=== PATIENT | male | born 1975 | race Caucasian/White ===

== ENCOUNTER 2020-08-08 07:34 | Outpatient (CLI) | payer OTHER, SELFPAY ==
[2020-08-08 08:21] LABS: Anion Gap 4 mmol/L (8-16); Blood Urea Nitrogen 21 mg/dL (9-20); Calcium 9.3 mg/dL (8.4-10.2); Carbon Dioxide 32 mmol/L (22-30); Chloride 105 mmol/L (98-107); Cholesterol 129 mg/dL (0-200); Estimated Glomerular Filt Rate > 60; Glucose 122 mg/dL (75-110); HDL Direct 58 mg/dL; Potassium 4.7 mmol/L (3.4-5.0); Sodium 141 mmol/L (137-145); Triglycerides 59 mg/dL (<150)
[2020-08-08 08:32] LABS: LDL Cholesterol Direct 49 mg/dL
[2020-08-08 10:22] LABS: Hemoglobin A1C 5.5 % (<5.7)
== END 2020-08-08 07:35 | disposition home or self-care (01) ==
PROVIDERS: PCP Internal Medicine; Visit Provider Internal Medicine
DX: R73.03 Prediabetes (principal); I10 Essential (primary) hypertension; Z79.899 Other long term (current) drug therapy
CPT/HCPCS: 36415; 80048; 80061; 83036; 84443

== ENCOUNTER 2021-02-05 11:56 | Outpatient (CLI) | payer OTHER, SELFPAY ==
[2021-02-05 12:18] LABS: Basophils Absolute Auto 0.1 K/mm3 (0.0-0.1); Basophils Percent Auto 0.8 % (0.2-1.2); Eosinophils Absolute Auto 0.3 K/mm3 (0-0.3); Eosinophils Percent Auto 4.4 % (0-4.4); Hematocrit 45.2 % (42.0-52.0); Hemoglobin 14.7 g/dL (14.0-18.0); Immature Granulocyte Absolute 0.02 K/mm3 (0.00-0.031); Immature Granulocyte Percent A 0.3 % (0-0.5); Lymphocytes Absolute Auto 2.16 K/mm3 (0.9-3.2); Lymphocytes Percent Auto 30.4 % (18.3-44.2); Mean Corpuscular HGB Conc 32.5 g/dl (32-36); Mean Corpuscular Hemoglobin 29.1 pg (26-34); Mean Corpuscular Volume 89.5 fl (80-100); Monocytes Absolute Auto 0.6 K/mm3 (0.1-0.6); Monocytes Percent Auto 7.7 % (2.6-8.5); Neutrophils Percent Auto 56.4 % (45.5-73.1); Platelet Count Result 273 k/mm3 (150-375); Red Blood Count 5.05 M/mm3 (4.6-6.20); Red Cell Distribution Width 13.2 % (11.5-14.5); White Blood Count 7.1 K/mm3 (4.5-10.0)
[2021-02-05 12:36] LABS: Alanine Aminotransferase 39 U/L (4-50); Albumin Level 4.3 g/dL (3.5-5.1); Alkaline Phosphatase 61 U/L (38-126); Anion Gap 9 mmol/L (8-16); Aspartate Amino Transferase 32 U/L (17-59); Bilirubin,Total 0.3 mg/dL (0.2-1.3); Blood Urea Nitrogen 14 mg/dL (9-20); Calcium 9.3 mg/dL (8.4-10.2); Carbon Dioxide 28 mmol/L (22-30); Chloride 99 mmol/L (98-107); Cholesterol 128 mg/dL (0-200); Estimated Glomerular Filt Rate > 60; Glucose 131 mg/dL (65-110); HDL Direct 53 mg/dL; Potassium 4.3 mmol/L (3.4-5.0); Sodium 136 mmol/L (137-145); Triglycerides 69 mg/dL (<150)
[2021-02-05 12:48] LABS: LDL Cholesterol Direct 56 mg/dL
[2021-02-05 17:31] LABS: Hemoglobin A1C 5.9 % (<5.7)
== END 2021-02-05 11:57 | disposition home or self-care (01) ==
PROVIDERS: PCP Internal Medicine; Visit Provider Internal Medicine
DX: R73.03 Prediabetes (principal); I10 Essential (primary) hypertension; Z79.899 Other long term (current) drug therapy
CPT/HCPCS: 36415; 80053; 80061; 83036; 84443; 85025

== ENCOUNTER 2021-08-21 14:55 | Outpatient (CLI) | payer OTHER, SELFPAY ==
--- NOTE | ~2021-08-21 | XR_ITS ---
EXAMINATION: XR hand LT 2V DATE: 08/21/2021 15:34 INDICATION: Left hand pain at the knuckles. TECHNIQUE: 2 views of left hand were obtained. COMPARISON: None. FINDINGS: Bone alignment is normal. No fracture. There is mild osteoarthritis of first and third meta carpophalangeal joints, second and third proximal interphalangeal joints, and second-fifth distal int erphalangeal joints. IMPRESSION: 1. Mild polyarticular osteoarthritis. Reviewed, dictated and finalized at location A. 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
--- NOTE | ~2021-08-21 | XR_ITS ---
EXAMINATION:XR_CERV2-3V_CR DATE: 08/21/2021 15:35 INDICATION: Neck pain TECHNIQUE: AP, lateral, lateral swimmers and odontoid views of the cervical spine are provided. COMPARISON: None FINDINGS: Alignment is normal. There is straightening of the cervical spine which can be positional o r due to muscular spasm. The odontoid is intact. No fracture is identified. The vertebral body height s are maintained. There is mild loss of intervertebral disc space height in the mid cervical spine. S mall degenerative osteophytes project from the anterior endplates of multiple vertebral bodies. There is mild facet and uncovertebral joint osteoarthritis of the lower cervical spine Prevertebral soft t issues are normal. IMPRESSION: 1. Mild cervical spondylosis without acute findings. Reviewed, dictated and finalized at location B. CHARD GRINDER OPERATOR
--- NOTE | ~2021-08-21 | XR_ITS ---
EXAMINATION: XR hand RT 2V DATE: 08/21/2021 15:34 INDICATION: Right hand pain at the knuckles. TECHNIQUE: 2 views of right hand were obtained. COMPARISON: None. FINDINGS: Bone alignment is normal. No fracture. There is mild osteoarthritis of first carpometacarpa l joint, first-third metacarpophalangeal joints, second proximal interphalangeal joint, and second-fi fth distal interphalangeal joints. IMPRESSION: 1. Mild polyarticular osteoarthritis. Reviewed, dictated and finalized at location A. [employer]PING
--- NOTE | ~2021-08-21 | XR_ITS ---
EXAMINATION: XR knee LT 3V DATE: 08/21/2021 15:34 INDICATION: Left knee pain. TECHNIQUE: 3 views of left knee standing were obtained. COMPARISON: None. FINDINGS: Bone alignment is normal. No fracture. There is a benign bone island in distal femur. There is mild osteoarthritis of medial and lateral compartments characterized by tiny osteophytes. No join t space narrowing. No knee joint effusion. IMPRESSION: 1. Mild left knee osteoarthritis. Reviewed, dictated and finalized at location A. ER COMPRESSED GASES
--- NOTE | ~2021-08-21 | XR_ITS ---
EXAMINATION: XR knee RT 3V DATE: 08/21/2021 15:33 INDICATION: Right knee pain. TECHNIQUE: 3 standing views of right knee were obtained. COMPARISON: None. FINDINGS: Bone alignment is normal. No fracture. There is mild osteoarthritis of patellofemoral norma rtment characterized by a tiny osteophyte. No knee joint effusion. IMPRESSION: 1. Mild right knee osteoarthritis. Reviewed, dictated and finalized at location A. 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
[2021-08-21 15:18] LABS: Basophils Absolute Auto 0.1 K/mm3 (0.0-0.1); Basophils Percent Auto 0.9 % (0.2-1.2); Eosinophils Absolute Auto 0.2 K/mm3 (0-0.3); Eosinophils Percent Auto 2.5 % (0-4.4); Hematocrit 41.2 % (42.0-52.0); Immature Granulocyte Absolute 0.02 K/mm3 (0.00-0.031); Immature Granulocyte Percent A 0.3 % (0-0.5); Lymphocytes Absolute Auto 2.72 K/mm3 (0.9-3.2); Lymphocytes Percent Auto 34.2 % (18.3-44.2); Mean Corpuscular Hemoglobin 29.2 pg (26-34); Mean Corpuscular Volume 85.8 fl (80-100); Mean Platelet Volume 9.8 fl (7.4-10.4); Monocytes Absolute Auto 0.8 K/mm3 (0.1-0.6); Monocytes Percent Auto 9.4 % (2.6-8.5); Neutrophils Absolute Auto 4.2 K/mm3 (1.3-6.7); Neutrophils Percent Auto 52.7 % (45.5-73.1); Platelet Count Result 283 k/mm3 (150-375)
[2021-08-21 15:35] LABS: Anion Gap 6 mmol/L (8-16); Blood Urea Nitrogen 21 mg/dL (9-20); Calcium 9.5 mg/dL (8.4-10.2); Carbon Dioxide 28 mmol/L (22-30); Chloride 104 mmol/L (98-107); Cholesterol 147 mg/dL (0-200); Estimated Glomerular Filt Rate > 60; Glucose 99 mg/dL (65-110); HDL Direct 57 mg/dL; Potassium 4.3 mmol/L (3.4-5.0); Sodium 138 mmol/L (137-145); Triglycerides 62 mg/dL (<150)
[2021-08-21 15:38] LABS: Hemoglobin A1C 5.6 % (<5.7)
[2021-08-21 15:45] LABS: LDL Cholesterol Direct 54 mg/dL
== END 2021-08-21 14:56 | disposition home or self-care (01) ==
PROVIDERS: PCP Internal Medicine; Visit Provider Internal Medicine
DX: R73.03 Prediabetes (principal); Z51.81 Encounter for therapeutic drug level monitoring; Z79.899 Other long term (current) drug therapy; Z13.220 Encounter for screening for lipoid disorders; I10 Essential (primary) hypertension; Z13.29 Encounter for screening for other suspected endocrine disorder; R20.0 Anesthesia of skin; R20.2 Paresthesia of skin; M47.812 Spondylosis without myelopathy or radiculopathy, cervical region; M18.0 Bilateral primary osteoarthritis of first carpometacarpal joints; M19.042 Primary osteoarthritis, left hand; M19.041 Primary osteoarthritis, right hand; M17.0 Bilateral primary osteoarthritis of knee
CPT/HCPCS: 36415; 72040; 73120; 73562; 80048; 80061; 83036; 84439; 84443; 85025

== ENCOUNTER 2021-10-19 13:48 | Emergency (ER) | payer OTHER, SELFPAY ==
[2021-10-19] VITALS (10 sets, daily range): BP systolic 130–146; BP diastolic 88–103; PULSE 67–91; RESP 15–20; TEMP 36.5; O2SAT 95–100
--- NOTE | ~2021-10-19 | XR_ITS ---
EXAMINATION: XR chest 2V DATE: 10/19/2021 15:29 INDICATION: Dyspnea on exertion. Palpitations. TECHNIQUE: Frontal and lateral views of the chest were obtained. COMPARISON: Chest 2 views 09/23/2003 FINDINGS: The chest demonstrates clear lungs without pneumonia, pleural effusion, or pneumothorax. Th e heart size is normal. IMPRESSION: 1. No acute cardiopulmonary disease. Reviewed, dictated and finalized at location A.
--- NOTE | 2021-10-19 13:49 | ECG_ITS ---
Measurements Intervals [place] Rate: 89 P: [place]: 0 QRS: 46 QRSD: 85 T: -60 QT: 314 QTc: 382 Interpretive Statements ATRIAL FIBRILLATION VOLTAGE CRITERIA FOR LVH ST-T WAVE ABNORMALITY IN INFERIOR LEADS- CONSIDER ISCHEMIA BASELINE ARTIFACT- III ABNORMAL ECG Electronically Signed On 10-19-2021 14:00:56 CDT by Josesito Jackson D.O.
[2021-10-19 14:17] LABS: Basophils Absolute Auto 0.1 K/mm3 (0.0-0.1); Eosinophils Absolute Auto 0.2 K/mm3 (0-0.3); Eosinophils Percent Auto 2.4 % (0-4.4); Hemoglobin 16.5 g/dL (14.0-18.0); Immature Granulocyte Absolute 0.02 K/mm3 (0.00-0.031); Immature Granulocyte Percent A 0.2 % (0-0.5); Lymphocytes Absolute Auto 2.68 K/mm3 (0.9-3.2); Lymphocytes Percent Auto 32.5 % (18.3-44.2); Mean Corpuscular Hemoglobin 29.1 pg (26-34); Mean Corpuscular Volume 88.2 fl (80-100); Mean Platelet Volume 9.9 fl (7.4-10.4); Monocytes Absolute Auto 0.9 K/mm3 (0.1-0.6); Monocytes Percent Auto 11.4 % (2.6-8.5); Neutrophils Absolute Auto 4.3 K/mm3 (1.3-6.7); Neutrophils Percent Auto 52.5 % (45.5-73.1); Platelet Count Result 334 k/mm3 (150-375); Red Blood Count 5.67 M/mm3 (4.6-6.20); White Blood Count 8.2 K/mm3 (4.5-10.0)
[2021-10-19 14:28] LABS: Alanine Aminotransferase 54 U/L (4-50); Albumin Level 4.6 g/dL (3.5-5.1); Alkaline Phosphatase 56 U/L (38-126); Anion Gap 9 mmol/L (8-16); Aspartate Amino Transferase 40 U/L (17-59); Bilirubin,Total 0.6 mg/dL (0.2-1.3); Blood Urea Nitrogen 14 mg/dL (9-20); Calcium 9.4 mg/dL (8.4-10.2); Carbon Dioxide 26 mmol/L (22-30); Chloride 104 mmol/L (98-107); Estimated CRCL calculation 87 ml/min; Estimated Glomerular Filt Rate > 60; Glucose 124 mg/dL (65-110); Lipase 321 U/L (23-300); Potassium 4.2 mmol/L (3.4-5.0); Sodium 139 mmol/L (137-145)
[2021-10-19 14:34] LABS: INR 1.1; Partial Thromboplastin Time 29.2 SECONDS (22.3-36.8); Prothrombin Time 13.7 Seconds (11.1-14.7)
[2021-10-19 14:40] LABS: Troponin I < 0.012 ng/mL (0.000-0.034)
--- NOTE | 2021-10-19 15:11 | ECG_ITS ---
Measurements Intervals [place] Rate: 63 P: 35 VA: 159 QRS: 30 QRSD: 90 T: 25 QT: 334 QTc: 343 Interpretive Statements SINUS RHYTHM CANNOT RULE OUT SEPTAL INFARCT, AGE INDETERMINATE NONSPECIFIC T-WAVE ABNORMALITY- INFERIOR LEADS BASELINE ARTIFACT- I, II, III, AVR, AVL, AVF ABNORMAL ECG Electronically Signed On 10-19-2021 15:54:18 CDT by Josesito Jackson D.O.
--- NOTE | 2021-10-19 15:11 | ED.ARRPALP ---
HPI - Arrhythmia/Palpitations General Chief Complaint: Arrhythmia/Palpitations Stated Complaint: palpitations, heart racing Time Seen by Provider: 10/19/21 15:05 Source: RN notes reviewed History of Present Illness HPI narrative: Patient presents emergency room from home for palpitations. Patient states for the past 2 days has been having feelings of his heart racing states that these episodes will sometimes be worse with activity he states that with these episodes of heart racing will have dyspnea at times he denies any fevers or chills, chest pain abdominal pain nausea vomiting or any other symptoms. States he has worn a Holter monitor in the past for an irregular heart rate but he has never been diagnosed with an irregular heart rate denies any fevers chills or any other systems Related Data Home Medications Medication Instructions Recorded Confirmed omeprazole 20 mg capsule,delayed 20 mg PO DAILY 08/16/20 08/24/21 release Allergies Allergy/AdvReac Type Severity Reaction Status Date / Time No Known Allergies Allergy Verified 10/19/21 15:13 Review of Systems Review of Systems: Gen.: Denies fevers or chills ENT: Denies congestion Respiratory: Ports intermittent shortness of breath CV: See HPI GI: Denies abdominal pain nausea, emesis or diarrhea denies burning, urgency, frequency or hematuria Musculoskeletal: Denies back pain or muscle pain Neuro: Denies numbness, tingling, weakness or focal weakness Skin: Denies rash Except as documented, all other systems reviewed and negative [facility] Past Medical History Medical History Benign essential hypertension BMI 29.0-29.9,adult BMI 30.0-30.9,adult Change in mole Chronic knee pain Contact dermatitis Encounter for preventive health examination Encounter for routine adult health examination without abnormal findings Hearing loss Impacted cerumen of both ears Impacted cerumen of left ear On watermaster drug therapy Pre-diabetes Prostate cancer screening Skin lesion Tinnitus of both ears Tobacco abuse Vasovagal episode Family History Family History Mother Patient's mother is in good health Sibling Patient's sister is in good health Father Family history of heart disease in male family member before age 55 Social History Social History Smoking status: Current some day smoker Alcohol intake: current Exam Narrative: APPEARANCE: No acute distress, nontoxic, resting in bed EYES: EOMI HEENT: Normocephalic, atraumatic, OMM RESPIRATORY: No respiratory distress Clear to auscultation bilaterally with no rhonchi wheezing or rales. CARDIOVASCULAR: Regular rate and rhythm without murmurs rubs or gallops. ABDOMINAL: Soft, nontender, nondistended, no rebound or guarding MUSCULOSKELETAl: Moves all extremities. No clubbing, cyanosis or edema. NEURO: Awake and alert. Following commands, speech normal, no focal deficits SKIN:: Warm, dry. No rashes lesions or abrasions PSYCHIATRIC: Normal affect/mood, Course Course Emergency Course: Patient spontaneously converted to sinus rhythm Discussed with SANTINO Martinez for Dr. Leblanc for cardiology presentation work-up she reviewed the patient's chart at this time based on patient's CHADS2 score he does not require any anticoagulation she request patient started on metoprolol 12.5 mg twice daily and they will call the patient to schedule appointment the beginning next week Discussed with patient results of workup and diagnosis. Discussed need for follow-up with primary care, proper use of medication, and reasons to return to the emergency department. Patient understands and agrees to current treatment plan Vital Signs Vital signs: Vital Signs Temperature 97.7 F 10/19/21 13:57 Pulse Rate 84 10/19/21 13:57 Respiratory Rate 20 10/19/21 13:57 Blood Pressure
[2021-10-19 15:20] LABS: D Dimer 0.29 ug/mL (<0.48)
[2021-10-19] MEDS: METOPROLOL TARTRATE 12.5 MG TABLET PO (16:01)
== END 2021-10-19 16:07 | disposition home or self-care (01) ==
PROVIDERS: Emergency Provider Emergency Medicine; PCP Internal Medicine
DX: I48.0 Paroxysmal atrial fibrillation (principal); I10 Essential (primary) hypertension; R73.03 Prediabetes; F17.200 Nicotine dependence, unspecified, uncomplicated; R94.31 Abnormal electrocardiogram [ECG] [EKG]
CPT/HCPCS: 36415; 71046; 80053; 83690; 84484; 85025; 85380; 85610; 85730; 93005; 99284; A9270

== ENCOUNTER 2022-01-10 16:39 | Emergency (ER) | payer OTHER, SELFPAY ==
--- NOTE | ~2022-01-10 | XR_ITS ---
XR finger 1st RT min 2V 01/10/2022 17:12 Indication: Blister. Abscess to the tip of the thumb. Procedure: 3 views right first finger Comparison: No prior studies for comparison. Findings: No fracture or traumatic malalignment. Small foreign bodies identified in the nailbed and a djacent to the IP joint. No evidence for osteomyelitis. Impression: 1: No acute bone or joint abnormality. 2: Small foreign bodies overlying the nailbed and adjacent to the first IP joint. Reviewed, dictated and finalized at location A. Impression: 1: No acute bone or joint abnormality. 2: Small foreign bodies overlying the nailbed and adjacent to the first IP tobi king
[2022-01-10 16:41] VITALS: BP 179/90; PULSE 89; RESP 18; TEMP 36.5; O2SAT 97
--- NOTE | 2022-01-10 17:03 | ED.GENADULT ---
HPI - General Adult General Chief complaint: Extremity Injury, Upper <EDUAR Colón Last Filed: 01/10/22 19:33> Stated complaint: right thumb swelling <EDUAR Colón Last Filed: 01/10/22 19:33> Time Seen by Provider: 01/10/22 16:43 <EDUAR Colón Last Filed: 01/10/22 19:33> Source: patient <EDUAR Colón Last Filed: 01/10/22 19:33> Mode of arrival: ambulatory <EDUAR Colón Last Filed: 01/10/22 19:33> Limitations: no limitations <EDUAR Colón Last Filed: 01/10/22 19:33> History of Present Illness HPI narrative: Patient is a 46-year-old male who presents the ED with report of infection to right thumb. Patient reports he was filling drywall holes w/ putty with his fingers last Friday. He notes he may have trimmed his fingernail too short and started noticing some tenderness to the distal tip of his thumb afterwards around his distal and eventually the radial nail bed edges. He states he accidentally hit his thumb on several different things over the weekend but did not think much of it. [place] 3 [place] and went swimming. He started to notice increased swelling and green/purple bruising/discoloration to the distal tip of his thumb and surrounding his nail bed on Friday. Symptoms since persisted, prompting him to come to the ED. No fever, chills, no spontaneous drainage, numbness/tingling. <EDUAR Colón Last Filed: 01/10/22 19:33> Related Data Home medications: Home Medications Medication Instructions Recorded Confirmed omeprazole 20 mg capsule,delayed 20 mg PO DAILY 08/16/20 11/06/21 release aspirin 325 mg tablet,delayed 325 mg PO DAILY 11/06/21 11/06/21 release <EDUAR Colón Last Filed: 01/10/22 19:33> Allergies/adverse reactions: Allergies Allergy/AdvReac Type Severity Reaction Status Date / Time No Known Allergies Allergy Verified 01/10/22 16:39 <Melinda Gamino PA-C - Last Filed: 01/10/22 19:33> Review of Systems Review of Systems: CONSTITUTIONAL: Denies fever, chills, or sweats. SKIN: Reports pain, swelling, green/purple ecchymosis/discoloration of distal R thumb and around nail bed. Denies spontaneous drainage. NEUROLOGIC: Denies numbness, tingling, or weakness. <Melinda Gamino PA-C - Last Filed: 01/10/22 19:33> All systems reviewed & are unremarkable except as noted in HPI and below <Melinda Gamino PA-C - Last Filed: 01/10/22 19:33> [facility] Past Medical History Medical History: Medical History (Updated 01/11/22 @ 00:00 by Jose Martin Santana) A-fib Benign essential hypertension BMI 29.0-29.9,adult BMI 30.0-30.9,adult Change in mole Chronic knee pain Contact dermatitis Encounter for preventive health examination Encounter for routine adult health examination without abnormal findings Hearing loss Impacted cerumen of both ears Impacted cerumen of left ear On nursing home drug therapy Pre-diabetes Prostate cancer screening Skin lesion Tinnitus of both ears Tobacco abuse Vasovagal episode <Melinda Gamino PA-C - Last Filed: 01/10/22 19:33> Surgical History Surgical History: Surgical History (Updated 01/10/22 @ 17:05 by Melinda Gamino PA-C) No pertinent past surgical history <Melinda Gamino PA-C - Last Filed: 01/10/22 19:33> Family History Family History: Family History Mother Patient's mother is in good health Sibling Patient's sister is in good health Father Family history of heart disease in male family member before age 55 <Melinda Gamino PA-C - Last Filed: 01/10/22 19:33> Social History Social History: Social History Smoking status: Light tobacco smoker Alcohol intake: current <Melinda Gamino PA-C - Last Filed: 01/10/22 19:33> Exam Narrative: GENERAL: Well appearing, well-nourished,
[2022-01-10] MEDS: TETANUS,DIPHTHERIA,AC PERTUSSIS ADULT (0.5 ML) BOOSTRIX IM (17:20)
[2022-01-10] MEDS: ACETAMINOPHEN 500 MG TABLET 1000 MG PO (19:07)
[2022-01-10 19:15] VITALS: BP 151/103; PULSE 70; RESP 14; O2SAT 98
== END 2022-01-10 19:15 | disposition home or self-care (01) ==
PROVIDERS: Emergency Provider Emergency Medicine; PCP Internal Medicine
DX: L03.011 Cellulitis of right finger (principal); Z23 Encounter for immunization; I48.91 Unspecified atrial fibrillation; I10 Essential (primary) hypertension; R73.03 Prediabetes; F17.200 Nicotine dependence, unspecified, uncomplicated; Z79.82 Long term (current) use of aspirin
CPT/HCPCS: 26010; 73140; 90471; 90715; 99283; A9270

== ENCOUNTER 2022-02-26 05:57 | Observation (INO) | payer OTHER, SELFPAY ==
[2022-02-26] VITALS (42 sets, daily range): BP systolic 104–165; BP diastolic 74–112; PULSE 47–89; RESP 11–22; TEMP 36.4–36.7; O2SAT 94–100; BMI 29.4
--- NOTE | 2022-02-26 | ECHO_ITS ---
Patient Info Name: Wale Byrd Age: 46 years : 1975 Gender: Male Ht: 67 in Wt: 180 lbs BSA: 1.98 m2 HR: 73 bpm BP: 125 / 88 mmHg Technical Quality: Fair Exam Date: 02/26/2022 10:18 AM Exam Location: [facility] Patient Status: Inpatient Admit Date: 02/26/2022 Staff Ordering Physician: Josesito Jackson DO Emergency Communications Officer: Judy Roman RDCS Attending Provider: Dickson Corona MD Referring Physician: Manuel SHEPARD; Exam Type: CA echo dop color flow w con Study Info Indications I21.4 - Non-ST elevation (NSTEMI) myocardial infarction Complete two-dimensional, color flow and Doppler transthoracic echocardiogram is performed with contrast to opacify the left ventricle and to improve the deliniation of the left ventricle endocardial borders. Summary 1. Left ventricular chamber dimension is normal. 2. Definity contrast administered improved wall motion interpretation. 3. Posterior wall is severely hypokinetic. 4. There is mildly increased left ventricular wall thickness. 5. Left ventricular systolic function is preserved, estimated at 50-55%. 6. The left ventricular diastolic function is grade I diastolic dysfunction. 7. E/e' 3 is not elevated. 8. No pulmonary hypertension, estimated pulmonary arterial systolic pressure is 22 mmHg. Left Ventricle Definity contrast administered improved wall motion interpretation. Posterior wall is severely hypokinetic. Left ventricular systolic function is preserved, estimated at 50-55%. E/e' 3 is not elevated. Left ventricular chamber dimension is normal. There is mildly increased left ventricular wall thickness. The left ventricular diastolic function is grade I diastolic dysfunction. Right Ventricle Right ventricular chamber dimension is normal. Right ventricular systolic function is normal. Left Atria Left atrial chamber dimension is normal. Right Atria Right atrial chamber dimension is normal. Aortic Valve The aortic valve is trileaflet. There is no aortic valve stenosis. There is no aortic valve regurgitation. Pulmonic Valve There is no pulmonic regurgitation. Mitral Valve There is no mitral valve stenosis. There is no mitral valve regurgitation. Tricuspid Valve There is no tricuspid valve regurgitation. No pulmonary hypertension, estimated pulmonary arterial systolic pressure is 22 mmHg. Pericardium/Pleural There is no pericardial effusion. Inferior Vena Cava Normal inferior vena cava with >50% collapse upon inspiration consistent with normal right atrial pressure, 5 mmHg. Aorta The aortic root size at the sinus of Valsalva is normal. Left Ventricular Outflow Tract Name Value Normal LVOT 2D LVOT Diameter 2.07 cm LVOT Doppler LVOT Peak Gradient 3 mmHg LVOT Mean Gradient 2 mmHg LVOT VTI 19.31 cm LVOT VTI/AV VTI Ratio 1.01 LVOT Stroke Volume 64.74 ml Pulmonic Valve Name Value Blanche
--- NOTE | ~2022-02-26 | XR_ITS ---
EXAMINATION: XR chest 2V DATE: 02/26/2022 06:47 INDICATION: Shortness of breath and palpitations TECHNIQUE: PA and lateral views of the chest were obtained. COMPARISON: Chest radiograph dated 10/19/2021 FINDINGS: The lungs remain clear with no focal airspace opacities, pulmonary edema, pleural effusion or pneumot horax. The cardiomediastinal silhouette is normal. Chronic right acromioclavicular joint separation w ith persistent cephalad subluxation of the right clavicle and heterotopic ossification along the cour se of the coracoclavicular ligament indicative of prior tear. IMPRESSION: 1. No acute cardiopulmonary disease. Reviewed, dictated and finalized at location A.
--- NOTE | 2022-02-26 06:01 | ECG_ITS ---
Measurements Intervals [place] Rate: 63 P: 56 [place]: 165 QRS: 42 QRSD: 94 T: 55 QT: 397 QTc: 407 Interpretive Statements SINUS RHYTHM VENTRICULAR BIGEMINY ANTEROSEPTAL INFARCT, AGE INDETERMINATE ABNORMAL ECG COMPARED TO ECG 10/19/2021 15:18:40 VENTRICULAR BIGEMINY NOW PRESENT Electronically Signed On 02-26-2022 6:32:14 CDT by Josesito Jackson D.O.
--- NOTE | 2022-02-26 06:14 | PC.NURSE ---
pt states took 325mg aspirin at home this am [employer].
--- NOTE | 2022-02-26 06:35 | ED.GENADULT ---
HPI - General Adult General Chief complaint: Arrhythmia/Palpitations Stated complaint: shortness of breath and palpitations Time Seen by Provider: 02/26/22 06:15 History of Present Illness HPI narrative: 46-year-old male with a past medical history of abnormal heartbeat , hypertension presents for evaluation of palpitations and anterior chest wall pain which began when he woke up this morning around 5 AM. Patient states that he awoke from sleep made a cup of coffee and after he started drinking his coffee he noticed symptoms. After onset of symptoms he took his prescribed metoprolol. Symptoms have improved since onset. He denies exertional component. He does have regular visits with a butcher scullion and has worn a Holter monitor for the symptoms in the past. Related Data Home Medications Medication Instructions Recorded Confirmed omeprazole 20 mg capsule,delayed 20 mg PO DAILY 08/16/20 11/06/21 release aspirin 325 mg tablet,delayed 325 mg PO DAILY 11/06/21 11/06/21 release Allergies Allergy/AdvReac Type Severity Reaction Status Date / Time No Known Allergies Allergy Verified 02/26/22 06:10 Review of Systems Review of Systems: CONSTITUTIONAL: Denies fever, chills, or sweats. EYES: Denies visual changes, redness, or discharge. ENT: Denies rhinorrhea, congestion, sore throat, or otalgia. CARDIOVASCULAR: Denies chest pain, palpitations, or edema. RESPIRATORY: Denies cough or dyspnea. GASTROINTESTINAL: Denies abdominal pain, nausea, vomiting, or diarrhea. GENITOURINARY: Denies dysuria or hematuria. SKIN: Denies rash or itching. MUSCULOSKELETAL: Denies back pain, joint pain, or myalgia. NEUROLOGIC: Denies headache, numbness, or weakness. PSYCHIATRIC: Denies anxiety or depression. All systems reviewed & are unremarkable except as noted in HPI and below [facility] Past Medical History Medical History (Updated 02/26/22 @ 08:14 by Negro Rocha, ) A-fib Benign essential hypertension BMI 29.0-29.9,adult BMI 30.0-30.9,adult Change in mole Chronic knee pain Contact dermatitis Encounter for preventive health examination Encounter for routine adult health examination without abnormal findings Hearing loss Impacted cerumen of both ears Impacted cerumen of left ear On oil heaterman drug therapy Pre-diabetes Prostate cancer screening Skin lesion Tinnitus of both ears Tobacco abuse Vasovagal episode Surgical History Surgical History (Updated 01/10/22 @ 17:05 by Melinda Segovia PA-C) No pertinent past surgical history Family History Family History Mother Patient's mother is in good health Sibling Patient's sister is in good health Father Family history of heart disease in male family member before age 55 Social History Social History Smoking status: Light tobacco smoker Alcohol intake: current Exam Narrative: GENERAL: Well-appearing, well-nourished, and in no acute distress. HEAD: Normocephalic, atraumatic. EYES: PERRLA and EOMI. ENT: Nares clear, no rhinorrhea or epistaxis. Mucous membranes moist. NECK: Supple. CHEST: Clear to auscultation. No respiratory distress. HEART: Bradycardicrate and rhythm. No murmur heard. Normal peripheral pulses. ABDOMEN: Soft, nontender, nondistended, normal active bowel sounds. EXTREMITIES: Normal range of motion. No edema. SKIN: Warm, dry, no rash. NEURO: No focal deficits. Alert and oriented x3. PSYCH: Normal mood and affect. Course Vital Signs Vital signs: Vital Signs Temperature 97.6 F 02/26/22 06:03 Pulse Rate 61 02/26/22 06:03 Respiratory Rate 18 02/26/22 06:03 Blood Pressure 165/104 H 02/26/22 06:03 Pulse Oximetry 98 02/26/22 06:03 Oxygen Delivery Room Air 02/26/22 06:03 Temperature 97.6 F 02/26/22 06:03 Pulse Rate 58 L 02/26/22 07:18 Respiratory Rate 18 02/26/22 07:18 Blood Pressure 133/
[2022-02-26 06:38] LABS: Basophils Absolute Auto 0.1 K/mm3 (0.0-0.1); Basophils Percent Auto 0.8 % (0.2-1.2); Eosinophils Absolute Auto 0.3 K/mm3 (0-0.3); Eosinophils Percent Auto 2.7 % (0-4.4); Hematocrit 43.4 % (42.0-52.0); Hemoglobin 14.8 g/dL (14.0-18.0); Immature Granulocyte Absolute 0.02 K/mm3 (0.00-0.031); Immature Granulocyte Percent A 0.2 % (0-0.5); Lymphocytes Absolute Auto 2.62 K/mm3 (0.9-3.2); Mean Corpuscular HGB Conc 34.1 g/dl (32-36); Mean Corpuscular Hemoglobin 29.3 pg (26-34); Mean Corpuscular Volume 85.9 fl (80-100); Mean Platelet Volume 10.3 fl (7.4-10.4); Monocytes Percent Auto 9.3 % (2.6-8.5); Neutrophils Absolute Auto 6.5 K/mm3 (1.3-6.7); Platelet Count Result 320 k/mm3 (150-375); Red Blood Count 5.05 M/mm3 (4.6-6.20); Red Cell Distribution Width 13.1 % (11.5-14.5); White Blood Count 10.5 K/mm3 (4.5-10.0)
[2022-02-26 06:50] LABS: Prothrombin Time 12.8 Seconds (11.1-14.7)
[2022-02-26 06:51] LABS: Partial Thromboplastin Time 29.5 SECONDS (22.3-36.8)
--- NOTE | 2022-02-26 07:07 | PC.NURSE ---
Report to NEGIN Jerome to continue care.
[2022-02-26 07:25] LABS: Alanine Aminotransferase 36 U/L (6-50); Albumin Level 4.6 g/dL (3.5-5.1); Alkaline Phosphatase 72 U/L (38-126); Anion Gap 14 mmol/L (8-16); Aspartate Amino Transferase 46 U/L (17-59); Bilirubin,Total 0.5 mg/dL (0.2-1.3); Blood Urea Nitrogen 16 mg/dL (9-20); Calcium 9.4 mg/dL (8.4-10.2); Carbon Dioxide 23 mmol/L (22-30); Chloride 102 mmol/L (98-107); Estimated CRCL calculation 86 ml/min; Estimated Glomerular Filt Rate > 60; Glucose 122 mg/dL (65-110); Lipase 64 U/L (23-300); Magnesium 1.9 mg/dL (1.6-2.3); Potassium 3.9 mmol/L (3.4-5.0); Sodium 139 mmol/L (137-145)
--- NOTE | 2022-02-26 07:43 | ECG_ITS ---
Measurements Intervals [place] Rate: 55 P: 31 [place]: 184 QRS: 32 QRSD: 98 T: 21 QT: 413 QTc: 396 Interpretive Statements SINUS BRADYCARDIA ANTEROSEPTAL INFARCT, AGE INDETERMINATE ABNORMAL ECG COMPARED TO ECG 02/26/2022 06:05:12 SINUS BRADYCARDIA NOW PRESENT Electronically Signed On 02-26-2022 8:49:09 CDT by Josesito Jackson D.O.
[2022-02-26] MEDS: NITROGLYCERIN OINTMENT 1 INCH DOSE TRANSDERM (08:16)
[2022-02-26] MEDS: HEPARIN SODIUM 5,000 UNITS/ML VIAL 4000 UNITS IV PUSH (08:27)
[2022-02-26] MEDS: HEPARIN SOD/D5W 100 UNITS/ML 25,000 UNITS/250 ML BAG 9 UNITS IV CONT (08:34)
--- NOTE | 2022-02-26 08:34 | PM.CNCAR ---
Assessment and Plan Assessment and plan (1) Chest pain: Code(s): R07.9 - Chest pain, unspecified Status: Acute Assessment and Plan: NSTEMI. On aspirin, NTP, Metoprolol. Start heparin drip. Add statin. Obtain echo. Trend troponin. Discuss risks/benefits/alternative to left heart cath and he is agreeable to it. Will consult HCG for procedure. (2) Elevated troponin: Code(s): R77.8 - Other specified abnormalities of plasma proteins Status: Acute (3) PAF (paroxysmal atrial fibrillation): Code(s): I48.0 - Paroxysmal atrial fibrillation Status: Acute Assessment and Plan: In Sins rhythm. [id number] 1. On aspirin 325 mg daily. Probably due to excessive alcohol intake intermittently. (4) Benign essential hypertension: Code(s): I10 - Essential (primary) hypertension Status: Acute Assessment and Plan: Stable. (5) Tobacco abuse: Code(s): Z72.0 - Tobacco use Status: Acute Assessment and Plan: Counseled regarding smoking cessation. History of Present Illness History of Present Illness Consult date/time: 02/26/22 08:34 Consult reason: chest pain Reason For Visit: shortness of breath and palpitations Narrative: 46 yr old man who is my regular cardiology patient and who's PCP is Dr. Estevez presents to ER for chest pain. He has a history of atrial fibrillation, hypertension, smoking, alcohol intake. Presents with his who works with Dr. Estevez. Reports he got up this morning made some coffee and was going to use restroom when he had sudden onset mid chest pressure 8/10 in intensity associated with sob, palpitations. He was given NTG paste and pain subsided lasting 2 hours total. He drinks up to 12 pack of beer at times but has been cutting back and smokes while drinking. He can walk several blocks without any problems. Admits to snoring, stops breathing, wakes a up a couple of times a night to use restroom and daytime sleepiness. Denies chest pain, orthopnea, PND, edema, dizziness. Cardiovascular Procedures Echo/MUGA:: 05/08/16 Echo: EF 55%, mild LVH, grade II diastolic dysfunction (E/e' 5), LA upper limits of normal, thin and hypermobile atrial septum with no shunt by doppler, trace TR/PI. Electrophysiology:: 02/26/22 EKG: Sinus rhythm, ventricular bigeminy, anteroseptal infarct, age indeterminate. 11/06/21 EKG: Sinus bradycardia at 46 bpm. 10/19/21 EKG: Sinus rhythm, cannot r/o septal infarct, age indeterminate, nonspecific T wave in inferior leads. 10/19/21 EKG: Atrial fibrillation at 89 bpm, LVH, ST-T wave abnormality- consider inferior ischemia. 05/08/16 48 hour holter: Sinus rhythm, HR range 38-124 bpm; average HR 62 bpm; 12 PAC's, 13 couplets; 153 PVC's. Review of Systems Review of Systems: All systems reviewed & are unremarkable except as noted in HPI and below Constitutional: Constitutional: Reports as per HPI, Denies chills and Denies fever(s) Cardiovascular: Cardiovascular: Reports as per HPI, Reports chest pain, Denies leg edema and Denies lightheadedness Respiratory: Respiratory: Reports as per HPI and Reports dyspnea Gastrointestinal: Gastrointestinal: Reports as per HPI and Denies abdominal pain Genitourinary: Genitourinary: Reports as per HPI and Denies dysuria Musculoskeletal: Musculoskeletal: Reports as per HPI Neurologic: Reports as per HPI, Denies dizziness and Denies syncope [facility] Past Medical History Medical History (Updated 02/26/22 @ 08:39 by Josesito Jackson DO) A-fib Benign essential hypertension BMI 29.0-29.9,adult BMI 30.0-30.9,adult Change in mole Chronic knee pain Contact dermatitis Encounter for preventive health examination Encounter for routine adult health examination without abnormal findings Hearing loss Impacted cerumen of both ears Impacted cerumen of left ear On residential drug therapy Pre-diabetes Prostate cancer screening Skin lesion Tinnitus of both ears Tobacco abuse Vasovagal episode Divina
[2022-02-26 09:13] LABS: SARS-CoV-2 RNA PCR Negative
--- NOTE | 2022-02-26 09:13 | PM.CNCAR ---
Assessment and Plan Assessment and plan (1) Non-ST elevation (NSTEMI) myocardial infarction: Code(s): I21.4 - Non-ST elevation (NSTEMI) myocardial infarction Status: Acute Assessment and Plan: 46-year-old male with hypertension, PAF, alcohol and tobacco abuse; family history of early CAD. ?Patient presented with anginal chest pain associated with shortness of breath; no acute ST segment abnormality on the EKG, troponin significantly elevated.? Patient's clinical presentation was initially consistent with non ST-elevation AL.? However, coronary angiogram did not show any significant obstructive CAD, except? sluggish blood flow in the LAD.? Possible? explanations for patient's clinical presentation may include myocardial infarction in the absence of obstructive coronary disease (MINOCA);? spontaneous resolution of a possible coronary thrombus, occlusion of a small coronary branch, coronary vasospasm, spontaneous coronary dissection, myocarditis, pulmonary embolism etc. D-dimer has been ordered.? Patient will be initiated on dual antiplatelet therapy with aspirin and clopidogrel in addition to other medications including beta-carli.? He will be monitored for any post AL arrhythmias.? Patient was advised to stop smoking and avoid excessive alcohol use.? The plan was discussed with the patient, his family and with the referring associate data scientist-Dr. Jackson. History of Present Illness History of Present Illness Consult date/time: 02/26/22 09:13 Requesting physician: Josesito Jackson DO Reason For Visit: nstemi,chest pain,bradycardia Narrative: DATE OF CONSULT:02/26/2022 REASON FOR CONSULT: non ST-elevation AL REQUESTING PHYSICIAN: Dr. Jackson CHIEF COMPLAINT: chest pain HPI: 46-year-old male with hypertension, PAF, alcohol and tobacco abuse; family history of early CAD. Patient presented to [facility] emergency room with complaints of chest discomfort that started in the morning today. Patient states that he woke up in the morning, and experienced substernal chest pain, which he described as pressure-like sensation and somebody sitting on his chest. His symptoms were associated with shortness of breath and dizziness without syncope. Patient states that his symptoms last for about 2 hours. He denied any associated symptoms of palpitations, syncope. Patient denies any known prior cardiac history , however gives family history of early CAD in his father. He states that he was diagnosed with atrial fibrillation few years ago, and has been on aspirin regimen. Initial EKG at presentation on my personal evaluation showed sinus rhythm, frequent PVCs in the form of bigeminy, anteroseptal infarct-age undetermined. Subsequent EKG showed sinus bradycardia, heart rate 55 beats per minute, anteroseptal infarct. First troponin negative, 2nd troponin elevated at 1.48 , and 3rd set is elevated at 3.18. Patient was seen by his associate data scientist- Dr Jackson and he consulted Interventional Cardiology for invasive management. At the time of evaluation in the emergency room, patient was not experiencing ongoing chest pain. He had echocardiogram today, official results are pending at this time. Previous echocardiogram from 05/08/2016 reportedly showed mild LVH, EF 55%, grade 2 diastolic dysfunction. Patient states that he smokes when he drinks alcohol; drinks 7-8 beers few times a week; and smokes marijuana. No other illicit drugs. 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 Review of Systems Review of Systems: General: Negative for fever, chills, fatigue Psychological: Negative for anxiety, depression Ophthalmic: negative for loss of vision ENT: Negative for epistaxis, headaches Allergy and immunology: Negative for hives, nasal congestion Hematologic and lymphatic: Negative for overt bleeding problems Endocrine: Negative for hot flashes, palpitations Respiratory: Negative for cough, hemoptysis Cardiovascular: Positive for chest pain, s
--- NOTE | 2022-02-26 09:51 | PC.NURSE ---
pt. having echo preformed unable to pass po mediations at this time.
[2022-02-26] MEDS: ATORVASTATIN 40 MG TABLET 80 MG PO (10:11)
[2022-02-26] MEDS: PERFLUTREN LIPID MICROSPHERES 1.5 ML VIAL DILUTED TO 10 ML TOTAL VOLUME IV PUSH (10:15)
--- NOTE | 2022-02-26 11:00 | PC.NURSE ---
verbal report to [facility]
--- NOTE | 2022-02-26 12:10 | WPDCARDPROC ---
Cardiac Cath Procedure Note Date of procedure:: 02/26/22 Performing physician:: Warren Santos MD Procedure Procedure note:: LEFT HEART CATHETERIZATION AND CORONARY ANGIOGRAM REPORT DATE OF PROCEDURE: 02/26/2022 INDICATION FOR PROCEDURE: Chest pain, elevated troponins BRIEF CLINICAL HISTORY: 46-year-old male with hypertension, PAF,? alcohol and tobacco abuse; family history of early CAD. Patient presented to the hospital with anginal chest pain associated with shortness of breath.? His initial EKG showed sinus rhythm with frequent PVCs? with anteroseptal infarct-age undetermined.? Troponins significantly elevated.? Clinical presentation was consistent with? ACS-non ST-elevation UT. Dr. Jackson consulted intervention Cardiology for coronary angiogram.? Benefits and risks of the procedure were discussed with the patient in depth, and informed consent was obtained prior to the procedure. Risks of the procedure include but are not limited to vascular complications including groin hematoma, retroperitoneal bleed, vessel perforation; periprocedural UT, cardiac arrhythmias, stroke, contrast induced nephropathy, and . After discussing all the benefits, risks and alternatives, patient was willing to proceed with the procedure. PROCEDURES PERFORMED: 1. Left heart catheterization- Selective left and right coronary angiogram; left ventriculogram and hemodynamic assessment 2. Deployment of Mynx hemostatic device 3. Moderate sedation-CPT code 57004 MODERATE SEDATION: Midazolam 1 mg; fentanyl 25 mcg; Start time 1135 , Stop time 1156 ; Total [id number] time 21 minutes; Judy Beard RN was trained observer for moderate sedation. ACCESS SITE: Right common femoral artery PROCEDURE NOTE: After obtaining informed consent, patient was brought to catheterization lab and prepped and draped in a usual sterile manner. After local anesthesia with lidocaine, right common femoral artery access was taken with micropuncture needle followed by insertion of a 6 Gambian sheath. Selective left and right coronary angiogram was performed using 5 Gambian JL4 and JR4 catheters respectively. Orthogonal views were taken. Next, a 5 Gambian pigtail catheter was advanced in the LV cavity and was flushed with normal saline. LV pressure measurement was performed. After this, left ventriculogram was performed. The catheter was flushed again, and gradient across the aortic valve was measured on the pullback of the catheter. Finally, Mynx vascular closure device was deployed with good hemostasis. Patient tolerated procedure well without any immediate procedure related complications. FINDINGS: LEFT MAIN CORONARY: a medium to large caliber vessel, no angiographic significant focal stenosis. LEFT ANTERIOR DESCENDING ARTERY:The LAD is a large caliber, tortuous vessel, tapers distally and reaches LV apex. Sluggish blood flow is seen in the LAD without significant focal stenosis. Major diagonal branch is a medium caliber vessel without significant focal stenosis. LEFT CIRCUMFLEX ARTERY: Medium to large caliber vessel, gives rise to large caliber OM1 branch, medium caliber OM2 branch and small caliber OM3 branch without significant focal stenosis. RIGHT CORONARY ARTERY: Large caliber, tortuous vessel, nose 1 focal stenosis seen. There is slight stasis of dye in the proximal segment, however, no obvious stenosis in. The vessel gives rise to small caliber PDA branch and medium caliber PLV branch. LEFT VENTRICULOGRAM: Preserved LV overall LV systolic function, ejection fraction about 60%; LVEDP 1 mmHg. HEMODYNAMIC ASSESSMENT: Opening pressure 103/78 mmHg , closing pressure 105/64 mmHg , LVEDP 1 mmHg , no significant gradient across aortic valve on the pullback of pigtail catheter. CONCLUSIONS: 1. No angiographically significant obstructive CAD; sluggish blood flow in the LAD. 2. Preserved overall LV systolic function, ejection fraction about 60%, LVEDP 1 mmHg. P
--- NOTE | 2022-02-26 13:10 | PC.NURSE ---
This patient, Wale Byrd, was admitted to IMU status, and placed in Intensive Care Unit-8. Patient/family oriented to hospital policies and general routines including ID bracelet, bed and alarms, visiting hours, pain management, procedures, bathroom and other care routines, personal items, smoking policy, room service/diet, and visiting hours. Valuables list has been completed. Information on how to activate the Rapid Response Team has been discussed. Patient/Family are encouraged to report perceived risks to care and to ask questions if they do not understand what they are told or what they should do.
[2022-02-26 13:36] LABS: D Dimer < 0.27 ug/mL (<0.48)
[2022-02-26] MEDS: SODIUM CHLORIDE 0.9% IV 1,000 ML 100 ML IV CONT (13:43)
--- NOTE | 2022-02-26 16:09 | PM.IMHP ---
H&P: HPI History of Present Illness Date/Time: 02/26/22 16:09 Chief Complaint: Chest pain and palpitation Narrative: This is a 46-year-old male patient who has a history of having ectopic beats and history of vasovagal syncope in the past. The patient stated that he woke up this morning around 5:00 a.m.. He got up and had a cup of coffee and then went to the bathroom and had a bowel movement. The patient stated that he felt he has palpitations again and felt fullness in his head and felt like he was going to pass out. He also had midsternal pressure. Patient stated he had not started to drink his coffee yet. His woke up and decided to bring him to the hospital. His white count was noted to be 10.5. D-dimer is negative. Troponin 1.480, 3.180 and 2.260. COVID was negative. Chest x-ray was read as no acute cardiopulmonary disease. Patient was taken to the cardiac catheterization lab and he had no significant stenosis or blockage. The patient is currently in sinus bradycardia in the 50s. He was started on an aspirin. The patient is being admitted to observation status on the date of service of 02/26/2022. Review of Systems Review of Systems: All systems reviewed & are unremarkable except as noted in HPI and below Constitutional: Constitutional: Reports as per HPI and Reports no additional constitutional complaints Eyes: Eyes: Reports as per HPI and Reports no additional eye complaints ENT: Reports system reviewed and no additional complaints, except as documented and Reports Normal hearing present Cardiovascular: Cardiovascular: Reports no additional cardiovascular complaints Respiratory: Respiratory: Reports no additional respiratory complaints and Reports no additional respiratory complaints Gastrointestinal: Gastrointestinal: Reports as per HPI and Reports no additional gastrointestinal complaints Musculoskeletal: Musculoskeletal: Reports no additional musculoskeletal complaints Integumentary/Breasts: Skin/Breast: Reports system reviewed and no additional complaints, except as docu and Reports as per HPI Neurologic: Reports system reviewed and no additional complaints, except as documented, Reports as per HPI and Reports Normal hearing present Psychiatric: Psychiatric: Reports no additional psychiatric complaints and Reports as per HPI Endocrine: Endocrine: Reports no additional endocrine complaints Hematologic/Lymphatic: Hematologic/Lymphatic: Reports no additional hematologic/lymphatic complaints Allergic/Immunologic: Allergic/Immunologic: Reports no additional allergic/immunologic complaints [facility] Past Medical History Medical History A-fib Benign essential hypertension BMI 29.0-29.9,adult BMI 30.0-30.9,adult Change in mole Chronic knee pain Contact dermatitis Encounter for preventive health examination Encounter for routine adult health examination without abnormal findings Hearing loss Impacted cerumen of both ears Impacted cerumen of left ear On mcc drug therapy Pre-diabetes Prostate cancer screening Skin lesion Tinnitus of both ears Tobacco abuse Vasovagal episode Surgical History Surgical History (Updated 02/26/22 @ 16:19 by Freda Peterson NP) H/O cardiac catheterization No intervention 02/26/2022 H/O rhinoplasty Family History Family History Mother Patient's mother is in good health Sibling Patient's sister is in good health Father Family history of heart disease in male family member before age 55 Social History Social History (Updated 02/26/22 @ 16:20 by Freda Peterson NP) Social History: The patient is and lives with his . He has 1 biological child and has 2 step children. 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 The patient smokes about 10-20 cigarettes a week. Any probably drinks alcohol 4 days a week. He usually drinks 7-10 beers when he does drink
[2022-02-27] VITALS (8 sets, daily range): BP systolic 124–138; BP diastolic 79–93; PULSE 49–59; RESP 19–22; TEMP 36.7–36.8; O2SAT 95–100
[2022-02-27 04:52] LABS: Basophils Absolute Auto 0.1 K/mm3 (0.0-0.1); Eosinophils Absolute Auto 0.2 K/mm3 (0-0.3); Eosinophils Percent Auto 2.4 % (0-4.4); Hematocrit 42.5 % (42.0-52.0); Hemoglobin 14.2 g/dL (14.0-18.0); Immature Granulocyte Absolute 0.03 K/mm3 (0.00-0.031); Immature Granulocyte Percent A 0.3 % (0-0.5); Lymphocytes Absolute Auto 2.61 K/mm3 (0.9-3.2); Lymphocytes Percent Auto 28.1 % (18.3-44.2); Mean Corpuscular HGB Conc 33.4 g/dl (32-36); Mean Corpuscular Hemoglobin 29.2 pg (26-34); Mean Corpuscular Volume 87.4 fl (80-100); Mean Platelet Volume 10.4 fl (7.4-10.4); Monocytes Absolute Auto 0.8 K/mm3 (0.1-0.6); Monocytes Percent Auto 8.7 % (2.6-8.5); Neutrophils Absolute Auto 5.5 K/mm3 (1.3-6.7); Neutrophils Percent Auto 59.5 % (45.5-73.1); Platelet Count Result 281 k/mm3 (150-375); Red Blood Count 4.86 M/mm3 (4.6-6.20); Red Cell Distribution Width 13.1 % (11.5-14.5); White Blood Count 9.3 K/mm3 (4.5-10.0)
[2022-02-27 05:11] LABS: Alanine Aminotransferase 35 U/L (6-50); Alkaline Phosphatase 57 U/L (38-126); Anion Gap 13 mmol/L (8-16); Aspartate Amino Transferase 36 U/L (17-59); Bilirubin,Total 0.7 mg/dL (0.2-1.3); Blood Urea Nitrogen 9 mg/dL (9-20); Calcium 8.9 mg/dL (8.4-10.2); Carbon Dioxide 23 mmol/L (22-30); Chloride 103 mmol/L (98-107); Estimated CRCL calculation 86 ml/min; Estimated Glomerular Filt Rate > 60; Glucose 109 mg/dL (65-110); Magnesium 2.2 mg/dL (1.6-2.3); Potassium 4.1 mmol/L (3.4-5.0); Sodium 139 mmol/L (137-145)
[2022-02-27 05:14] LABS: Hemoglobin A1C 5.6 % (<5.7)
--- NOTE | 2022-02-27 07:56 | PM.PNCARD ---
Progress Note: A&P Assessment and Plan (1) Elevated troponin: Code(s): R77.8 - Other specified abnormalities of plasma proteins Status: Acute Assessment and Plan: Peaked at 3. Had a 6 beat run of NSVT. Echo 02/26/22 shows EF 50-55% with hypokinetic posterior wall. LHC with Dr. Santos on 02/26/22 shows normal coronaries with some sluggish flow in LAD, no wall motion abnormalities. Probably NSTEMI due to dissolved coronary thrombus. Continue aspirin and Clopidogrel and Atorvastatin, and Metoprolol. May d/c home from cardiology standpoint and f/u with me in 1 week. (2) Benign essential hypertension: Code(s): I10 - Essential (primary) hypertension Status: Acute Assessment and Plan: Stable. Resume home BP medication. (3) Tobacco abuse: Code(s): Z72.0 - Tobacco use Status: Acute Assessment and Plan: Counseled regarding smoking cessation. (4) PAF (paroxysmal atrial fibrillation): Code(s): I48.0 - Paroxysmal atrial fibrillation Status: Acute Assessment and Plan: In Sins rhythm. [id number] 1. On aspirin 325 mg daily. Probably due to excessive alcohol intake intermittently. (5) Hypersomnia: Code(s): G47.10 - Hypersomnia, unspecified Status: Acute Assessment and Plan: Home sleep study had previously been ordered. Subjective Date/time seen: 02/27/22 07:56 Interval history: Denies any more chest pain or sob. Right groin access site is mildly sore but no hematoma/bleeding. Exam Const: General: cooperative, healthy appearing and comfortable Resp: Auscultation: clear to auscultation bilaterally, no crackles, no rales, no rhonchi and no wheezes Cardio: Jugular venous distension: no JVD Rate: regular rate Rhythm: regular rhythm Heart sounds: no murmurs Peripheral pulses: dorsalis pedis present GI: GI Palp: No abdominal tenderness and Yes Soft to palpation Neuro: General: oriented to person, oriented to place and oriented to time Extrem: Right lower extremity: no edema Left lower extremity: no edema Objective Data Vital Signs Vital Signs: Vital Signs - 24 hr 02/26/22 08:40 02/26/22 10:04 02/26/22 08:00 Temperature 98.0 F Pulse Rate 71 64 55 L Respiratory Rate 20 20 17 Blood Pressure 141/99 H 104/74 Pulse Oximetry 96 98 96 Oxygen Delivery 02/26/22 08:02 02/26/22 08:15 02/26/22 08:30 Temperature Pulse Rate 55 L 66 62 Respiratory Rate 13 17 21 H Blood Pressure 130/88 Pulse Oximetry 99 95 96 Oxygen Delivery 02/26/22 08:31 02/26/22 08:42 02/26/22 08:45 Temperature Pulse Rate 68 63 60 Respiratory Rate 12 21 H 11 L Blood Pressure 141/99 H 149/105 H Pulse Oximetry 100 98 98 Oxygen Delivery 02/26/22 09:00 02/26/22 09:01 02/26/22 09:15 Temperature Pulse Rate 61 61 63 Respiratory Rate 21 H 21 H 20 Blood Pressure 125/88 Pulse Oximetry 94 97 94 Oxygen Delivery 02/26/22 09:30 02/26/22 09:31 02/26/22 09:45 Temperature Pulse Rate 63 60 65 Respiratory Rate 13 14 17 Blood Pressure 110/75 Pulse Oximetry 99 Oxygen Delivery 02/26/22 10:00 02/26/22 10:01 02/26/22 12:15 Temperature Pulse Rate 60 89 54 L Respiratory Rate 15 22 H 14 Blood Pressure 104/74 126/85 Pulse Oximetry 96 Oxygen Delivery Room Air 02/26/22 12:30 02/26/22 12:45 02/26/22 13:00 Temperature Pulse Rate 56 L 55 L 55 L Respiratory Rate 12 12 14 Blood Pressure 128/89 143/96 H 135/98 H Pulse Oximetry 97 97 99 Oxygen Delivery Room Air Room Air Room Air 02/26/22 13:30 02/26/22 14:00 02/26/22 14:00 Temperature 98.1 F Pulse Rate 51 L 58 L 58 L Respiratory Rate 19 18 Blood Pressure 150/97 H 139/96 H Pulse Oximetry 97 98 Oxygen Delivery 02/26/22 14:01 02/26/22 14:30 02/26/22 15:00 Temperature Pulse Rate 56 L 60 Respiratory Rate 15 15 Blood Pressure 140/100 H 138/89 Pulse Oximetry 98 98 98 Oxygen Delivery Room Air 02/26/22 16:00 02/26/22 16:00
--- NOTE | 2022-02-27 09:38 | PM.DS ---
DS: Admitting Diagnosis Discharge Date 02/27/2022 Admitting Diagnosis Chest pain and palpitation DS: Discharge Diagnosis Discharge Diagnosis (1) Elevated troponin: Code(s): R77.8 - Other specified abnormalities of plasma proteins Status: Acute Assessment and Plan: -troponins are trending down -the patient had a cardiac catheterization today please see cardiology report and cardiac catheterization report -no significant blockage -D-dimer was negative. -I did not do a CTA PULM as his D-dimer was negative. -continue with aspirin -metoprolol had been placed on on hold possibly due to the bradycardia. Perhaps we can resume it with parameters. -he is now on Plavix -continue Lipitor -p.r.n. nitro (2) Benign essential hypertension: Code(s): I10 - Essential (primary) hypertension Status: Acute Assessment and Plan: -the patient is on metoprolol but was placed on hold at this point. Resume when possible. According to Cardiology note the patient will be continued on a beta-carli. However the patient's heart rate is in the 50s this may be the reason beta-blockers held at this time. (3) Pre-diabetes: Code(s): R73.03 - Prediabetes Status: Acute Assessment and Plan: -check A1c DS: Summary Hospital Course Reason for hospitalization: Chief Complaint: Chest pain and palpitation Narrative: This is a 46-year-old male patient who has a history of having ectopic beats and history of vasovagal syncope in the past.? The patient stated that he woke up this morning around 5:00 a.m..? He got up and had a cup of coffee and then went to the bathroom and had a bowel movement.? The patient stated that he felt he has palpitations again and felt fullness in his head and felt like he was going to pass out.? He also had midsternal pressure.? Patient stated he had not started to drink his coffee yet.? His woke up and decided to bring him to the hospital.? His white count was noted to be 10.5.? D-dimer is negative.? Troponin 1.480, 3.180 and 2.260.? COVID was negative.? Chest x-ray was read as no acute cardiopulmonary disease.? Patient was taken to the cardiac catheterization lab and he had no significant stenosis or blockage.? The patient is currently in sinus bradycardia in the 50s.? He was started on an aspirin.? The patient is being admitted to observation status on the date of service of 02/26/2022. Hospital Course: patient has NSTEMI seen by dissolver operator suspect dissolved coronary thrombus, continue aspirin, plavix and lipitor. patient is clinically stable, will discharge Time Spent with Patient Time attestation: Total time spent providing and/or coordinating discharge services: DS: Data Data Completed and Pending Labs on day of discharge: Labs from last 24 hours 02/27/22 02/27/22 02/27/22 03:58 03:58 03:58 WBC RBC Hgb Hct MCV MCH MCHC RDW Plt Count MPV Immature Gran % (Auto) Neut % (Auto) Lymph % (Auto) Hooker % (Auto) Eos % (Auto) Baso % (Auto) Lymph # (Auto) Hooker # (Auto) Eos # (Auto) Baso # (Auto) Abs Immat Gran (auto) Absolute Neuts (auto) Absolute Nucleated RBC Nucleated RBC % D-Dimer Sodium 139 Potassium 4.1 Chloride 103 Carbon Dioxide 23 Anion Gap 13 BUN 9 D Creatinine 0.90 Estim Creat Clear Calc 86 Estimated GFR > 60 Glucose 109 Hemoglobin A1c 5.6 Calcium 8.9 Magnesium 2.2 Total Bilirubin 0.7 AST 36 ALT 35 Alkaline Phosphatase 57 Troponin I Total Protein 7.0 Albumin 4.0 TSH (Reflex) 1.880 02/27/22 02/26/22 02/26/22 03:58 12:44 12:44 WBC 9.3 RBC 4.86 Hgb 14.2 Hct 42.5 MCV 87.4 MCH 29.2 MCHC 33.4 RDW 13.1 Plt Count 281 MPV 10.4 Immature Gran % (Auto) 0.3 Neut % (Auto) 59.5 Lymph % (Auto) 28.1 Hooker % (Auto) 8.7 H Eos % (Auto) 2.4 Baso % (Auto)
[2022-02-27] MEDS: VALSARTAN 160 MG TABLET 320 MG PO (09:45)
[2022-02-27] MEDS: ATORVASTATIN 40 MG TABLET 80 MG PO (09:46)
[2022-02-27] MEDS: METOPROLOL SUCCINATE EXT REL 12.5 MG TABCR PO (09:46)
[2022-02-27] MEDS: CLOPIDOGREL BISULFATE 75 MG TABLET PO (09:47)
[2022-02-27] MEDS: amLODIPine BESYLATE 5 MG TABLET PO (09:47)
[2022-02-27] MEDS: ASPIRIN 81 MG ENTERIC TABLET PO (09:47)
[2022-02-27] MEDS: PANTOPRAZOLE SOD SESQUIHYDRATE 20 MG TAB PO (09:47)
--- NOTE | 2022-02-27 10:58 | PC.NURSE ---
Dressing removed from right groin. Soft, no hematoma or bruising noted. Bandaid applied to site. Site re-checked 15 minutes later with no changes. Patient requests to walk down to car when discharged
== END 2022-02-27 11:07 | disposition home or self-care (01) ==
LOC: ANHED 10:02 → ANHICU 15:13
PROVIDERS: Emergency Medicine; Internal Medicine Cardiovascular Disease; Nurse Practitioner; Admitting Provider Internal Medicine; Emergency Provider Emergency Medicine; PCP Internal Medicine; Visit Provider Family Medicine
PROC: 4A023N7 Measurement of Cardiac Sampling and Pressure, Left Heart, Percutaneous Approach (ICD-10-PCS; CPT 93452; principal; 2022-02-26 10:30)
DX: I21.4 Non-ST elevation (NSTEMI) myocardial infarction (principal); R77.8 Other specified abnormalities of plasma proteins; I10 Essential (primary) hypertension; R73.03 Prediabetes; R06.02 Shortness of breath; G47.10 Hypersomnia, unspecified; R07.89 Other chest pain; R93.1 Abnormal findings on diagnostic imaging of heart and coronary circulation; I51.89 Other ill-defined heart diseases; I48.0 Paroxysmal atrial fibrillation; R00.1 Bradycardia, unspecified; N40.0 Benign prostatic hyperplasia without lower urinary tract symptoms; K21.9 Gastro-esophageal reflux disease without esophagitis; R94.31 Abnormal electrocardiogram [ECG] [EKG]; Z20.822 Contact with and (suspected) exposure to COVID-19; F17.210 Nicotine dependence, cigarettes, uncomplicated; F10.10 Alcohol abuse, uncomplicated; Z86.79 Personal history of other diseases of the circulatory system; Z79.82 Long term (current) use of aspirin; Z79.899 Other long term (current) drug therapy; Z82.49 Family history of ischemic heart disease and other diseases of the circulatory system
CPT/HCPCS: 36415; 71046; 80053; 83036; 83690; 83735; 84443; 84484; 85025; 85380; 85610; 85730; 93005; 93458; 96361; 96374; 96375; 99285; A9270; C1760; C1887; C1894; C8929; C9803; G0269; G0378; J1644; J2250; J3010; J7030; J7040; Q9957; U0003; U0005

== ENCOUNTER 2022-03-12 11:19 | Outpatient (CLI) | payer OTHER, SELFPAY ==
[2022-03-12 11:57] LABS: Basophils Absolute Auto 0.1 K/mm3 (0.0-0.1); Basophils Percent Auto 1.6 % (0.2-1.2); Eosinophils Absolute Auto 0.2 K/mm3 (0-0.3); Eosinophils Percent Auto 2.7 % (0-4.4); Hematocrit 44.6 % (42.0-52.0); Hemoglobin 14.8 g/dL (14.0-18.0); Immature Granulocyte Absolute 0.02 K/mm3 (0.00-0.031); Immature Granulocyte Percent A 0.3 % (0-0.5); Lymphocytes Absolute Auto 2.34 K/mm3 (0.9-3.2); Lymphocytes Percent Auto 31.2 % (18.3-44.2); Mean Corpuscular HGB Conc 33.2 g/dl (32-36); Mean Corpuscular Hemoglobin 28.7 pg (26-34); Mean Corpuscular Volume 86.6 fl (80-100); Monocytes Absolute Auto 0.7 K/mm3 (0.1-0.6); Monocytes Percent Auto 9.2 % (2.6-8.5); Neutrophils Absolute Auto 4.1 K/mm3 (1.3-6.7); Platelet Count Result 335 k/mm3 (150-375); Red Blood Count 5.15 M/mm3 (4.6-6.20); Red Cell Distribution Width 12.6 % (11.5-14.5); White Blood Count 7.5 K/mm3 (4.5-10.0)
[2022-03-12 12:12] LABS: Alanine Aminotransferase 27 U/L (6-50); Albumin Level 4.6 g/dL (3.5-5.1); Alkaline Phosphatase 56 U/L (38-126); Anion Gap 15 mmol/L (8-16); Aspartate Amino Transferase 25 U/L (17-59); Bilirubin,Total 0.3 mg/dL (0.2-1.3); Blood Urea Nitrogen 15 mg/dL (9-20); Calcium 9.4 mg/dL (8.4-10.2); Carbon Dioxide 26 mmol/L (22-30); Chloride 101 mmol/L (98-107); Cholesterol 83 mg/dL (0-200); Estimated Glomerular Filt Rate > 60; Glucose 108 mg/dL (65-110); HDL Direct 43 mg/dL; Potassium 4.2 mmol/L (3.4-5.0); Sodium 142 mmol/L (137-145); Triglycerides 36 mg/dL (<150)
[2022-03-12 12:19] LABS: Hemoglobin A1C 5.6 % (<5.7)
[2022-03-12 12:50] LABS: Free T4 Free Thyroxine 0.99 ng/mL (0.78-2.19); Vitamin D 25 Hydroxy 63.7 ng/mL
[2022-03-12 15:23] LABS: LDL Cholesterol Direct < 30 mg/dL
== END 2022-03-12 11:20 | disposition home or self-care (01) ==
LOC: ANHLAB 11:26
PROVIDERS: PCP Internal Medicine; Visit Provider Internal Medicine
DX: Z13.220 Encounter for screening for lipoid disorders (principal); Z79.899 Other long term (current) drug therapy; I10 Essential (primary) hypertension; R73.03 Prediabetes; Z13.29 Encounter for screening for other suspected endocrine disorder; E55.9 Vitamin D deficiency, unspecified
CPT/HCPCS: 36415; 80053; 80061; 82306; 83036; 84439; 84443; 85025

== ENCOUNTER → 2022-07-12 11:00 | Outpatient (CLI) | payer OTHER, SELFPAY ==
--- NOTE | 2022-07-29 18:34 | WPDHOMESLEEP ---
Sleep Study - Home Unattended Date of Study: 07/12/22 Ordering Provider: Josesito Jackson DO Interpreting Provider: Mary Sullivan DO Home Sleep Study Type: Watch PAT Height: 1.7 m Weight: 86.183 kg Body Mass Index: 29.7 Neck Circumference (inches): 15.75 [place]: 12 Reason for Sleep Study Waking up short of breath Sleep History The patient is a 47-year-old male with atrial fibrillation, hypertension, hearing loss, GERD, prediabetes, PACs/PVCs, hx of non-sustained Vtach, diastolic dysfunction and tobacco use that had a sleep study ordered by his lozenge dough mixer for evaluation of sleep apnea. The patient occasionally awakens from sleep short breath. He rarely awakens at night with heartburn, belching or cough. He rarely snores and is never loud enough that others complain. He rarely has trouble sleeping when he has a cold. He occasionally wakes up gasping for air throughout the night. He occasionally has breathing problems at night observed by himself or others. He occasionally sweats excessively at night. He occasionally has heart palpitations or irregular heartbeats during the night. He rarely falls asleep during the day never while driving. He denies sleep paralysis and cataplexy. He denies having trouble at school or work due to sleepiness. He frequently experiences vivid dreamlike scenes upon awakening or falling asleep. He denies feeling afraid of going to sleep. He denies having nightmares. He frequently remembers his dreams. He rarely has thoughts racing through his mind. He denies feeling sad or depressed. He rarely has anxiety. He denies having muscular tension. He occasionally notices parts of his body jerk. He rarely kicks during the night. He occasionally has crawling and aching feelings in his legs and occasionally has leg pain during the night. He occasionally grinds his teeth during sleep but rarely awakens with morning jaw pain. He denies being bothered by pain during the day and denies being awakened by pain during the night. He occasionally wakes up feeling stiff in the morning. He constantly wakes up with pain in the neck, spine or other joints. He goes to bed at 10:00 p.m. on weekdays and 11:00 p.m. on the weekends. It takes him 15 minutes to fall asleep. He wakes up 3 times throughout the night to urinate. He is able to fall asleep immediately. He wakes up at 6:30 a.m. on weekdays and 8:00 a.m. on the weekends. He typically gets 7.5 hours of sleep per night. He does not stay in bed after waking up in the morning. He currently lives with his and adult child. He will consume caffeinated tea within 2 hours of bedtime. He does not engage in physical exercise before bedtime. He will watch television before falling asleep. He will take naps in afternoon or the evening and are refreshing. He will consume caffeinated tea throughout the day. He denies alcohol use. He quit smoking cigarettes several months ago. He does use an unspecified recreational drugs. 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
[2022-07-29 18:44] VITALS: BMI 29.7
== END ==
LOC: ANHCSM 07-17 09:50
PROVIDERS: PCP Internal Medicine; Visit Provider Internal Medicine Cardiovascular Disease
DX: G47.10 Hypersomnia, unspecified (principal); G47.33 Obstructive sleep apnea (adult) (pediatric)
CPT/HCPCS: 95800

== ENCOUNTER 2022-08-12 08:37 | Outpatient (CLI) | payer OTHER, SELFPAY ==
[2022-08-12 09:32] LABS: Alanine Aminotransferase 22 U/L (6-50); Albumin Level 4.4 g/dL (3.5-5.1); Alkaline Phosphatase 64 U/L (38-126); Anion Gap 5 mmol/L (8-16); Aspartate Amino Transferase 27 U/L (17-59); Bilirubin,Total 0.4 mg/dL (0.2-1.3); Blood Urea Nitrogen 11 mg/dL (9-20); Calcium 9.3 mg/dL (8.4-10.2); Carbon Dioxide 29 mmol/L (22-30); Chloride 101 mmol/L (98-107); Cholesterol 81 mg/dL (0-200); Estimated Glomerular Filt Rate > 60; Glucose 115 mg/dL (65-110); HDL Direct 42 mg/dL; Sodium 135 mmol/L (137-145); Triglycerides < 30 mg/dL (<150)
[2022-08-12 09:53] LABS: Free T4 Free Thyroxine 0.94 ng/mL (0.78-2.19)
[2022-08-12 10:03] LABS: Thyroid Stimulating Hormone 0.765 uIU/mL (0.465-4.680)
[2022-08-12 12:26] LABS: LDL Cholesterol Direct < 30 mg/dL
[2022-08-12 16:41] LABS: Hemoglobin A1C 5.8 % (<5.7)
[2022-08-12 16:55] LABS: Prostate Specific Antigen 0.6 ng/mL (< OR = 4.0)
== END 2022-08-12 08:38 | disposition home or self-care (01) ==
PROVIDERS: PCP Internal Medicine; Visit Provider Internal Medicine
DX: Z12.5 Encounter for screening for malignant neoplasm of prostate (principal); Z13.29 Encounter for screening for other suspected endocrine disorder; Z79.899 Other long term (current) drug therapy; Z13.220 Encounter for screening for lipoid disorders; R73.03 Prediabetes; I10 Essential (primary) hypertension
CPT/HCPCS: 36415; 80053; 80061; 83036; 84153; 84439; 84443; G0103

== ENCOUNTER 2022-09-13 01:37 | Day surgery (SDC) | payer OTHER, SELFPAY ==
[2022-09-06 10:33] VITALS: BMI 29.7
--- NOTE | 2022-09-12 14:17 | PM.HPGS ---
History of Present Illness History of Present Illness Consent: Risks, benefits, and alternatives have been discussed and questions answered. Patient agrees to proceed with procedure. Chief complaint: neoplasm screening Narrative: Wale Byrd is a 47 year old male referred for colon cancer screening. Review of Systems Review of Systems: All systems reviewed & are unremarkable except as noted in HPI and below PMFSH Past Medical History Medical History A-fib Benign essential hypertension BMI 29.0-29.9,adult BMI 30.0-30.9,adult Change in mole Chronic back pain Chronic knee pain Colon cancer screening Contact dermatitis Encounter for preventive health examination Encounter for routine adult health examination without abnormal findings Hearing loss Impacted cerumen of both ears Impacted cerumen of left ear Lipoma of neck Night sweats On [facility]cc drug therapy Pre-diabetes Pressure sensation in both ears Prostate cancer screening Skin lesion Tinnitus of both ears Tobacco abuse Tobacco use Vasovagal episode Surgical History Surgical History H/O cardiac catheterization No intervention 02/26/2022 H/O rhinoplasty Family History Family History Mother Patient's mother is in good health Sibling Patient's sister is in good health Father Family history of heart disease in male family member before age 55 Social History Social History Social History: The patient is and lives with his . He has 1 biological child and has 2 step children. 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 The patient smokes about 10-20 cigarettes a week. Any probably drinks alcohol 4 days a week. He usually drinks 7-10 beers when he does drink. Code status full code Smoking status: Former smoker Tobacco type: cigarettes Second hand tobacco smoke exposure: Yes Alcohol intake: current Substance use: current Substance use type: marijuana Other substance usage details: MARIJ[place]NA-RECREATIONAL Lack of Transportation: No Lack of Food: Never True Current Housing: I Have Housing Concerned About Future Housing: No Difficulty Paying Gas/Electric Bills: No Difficulty Paying for Meds: No Currently Unemployed: No Education: High School Diploma/GED Difficulty w/ Childcare or Family Care: No Living arrangements: with family Occupation/Education: occupation Gender identity (if verbalized by the patient): Male Sexual Orientation (if Verbalized by the Patient): Straight or Heterosexual Spiritual care concerns: No Agree to blood products: Yes Meds Home Medications and Allergies Home Medications Medication Instructions Recorded Confirmed Type nitroglycerin 0.4 mg sublingual 0.4 mg sublingual Q5MIN PRN Chest 02/27/22 09/13/22 Rx tablet (Nitrostat) Pain #25 tabs aspirin 81 mg tablet,delayed 81 mg PO QAM #90 tabs 07/01/22 09/13/22 Rx release pantoprazole 40 mg tablet,delayed 40 mg PO QAM #90 tabs 07/01/22 09/13/22 Rx release APAP #1 ea 08/07/22 09/13/22 Rx atorvastatin 20 mg tablet 20 mg PO DAILY #90 tabs 08/29/22 09/13/22 Rx methylprednisolone 4 mg tablet 4 mg PO BID #20 tabs 09/02/22 09/13/22 Rx (Medrol) clopidogrel 75 mg tablet 75 mg PO DAILY 09/06/22 09/13/22 History metoprolol succinate 25 mg 12.5 mg PO DAILY 09/06/22 09/13/22 History tablet,extended release 24 hr valsartan 320 mg tablet 320 mg PO DAILY 09/06/22 09/13/22 History Allergies Allergy/AdvReac Type Severity Reaction Status Date / Time No Known Allergies Allergy Verified 09/13/22 08:31 Exam Const: General: alert Orientation/consciousness: patient oriented x3 Resp: Auscultation: clear to auscultation bilaterally Cardio: Rhythm: regular rhythm GI: GI Palp: Yes Soft to palpation and No
[2022-09-13 08:33] VITALS: BP 135/94; PULSE 75; RESP 18; TEMP 36.6; O2SAT 96
[2022-09-13] MEDS: LACTATED RINGERS 1,000 ML 150 ML IV CONT (08:41)
--- NOTE | 2022-09-13 09:26 | WPDANESEPPF ---
Anes - Initial Pre Proc Eval Procedure: Operation Date: 09/13/22 09:30 Proposed Procedures p Screening Colonoscopy - Alexandro Baez MD Date/Time: 09/13/22 09:26 Surgeon: Alexandro Baez MD Pre Op Diagnosis: neoplasm screening Patient Data Age: 47 Gender: M Height: 1.7 m Weight: 80.9 kg Last Vital Signs Temp 97.8 F 09/13/22 08:33 Pulse 75 09/13/22 08:33 Resp 18 09/13/22 08:33 BP 135/94 H 09/13/22 08:33 Pulse Ox 96 09/13/22 08:33 O2 Del Method Room Air 09/13/22 08:33 Allergies Allergy/AdvReac Type Severity Reaction Status Date / Time No Known Allergies Allergy Verified 09/13/22 08:31 Home Medications Medication Instructions Recorded Confirmed Type nitroglycerin 0.4 mg sublingual 0.4 mg sublingual Q5MIN PRN Chest 02/27/22 09/13/22 Rx tablet (Nitrostat) Pain #25 tabs aspirin 81 mg tablet,delayed 81 mg PO QAM #90 tabs 07/01/22 09/13/22 Rx release pantoprazole 40 mg tablet,delayed 40 mg PO QAM #90 tabs 07/01/22 09/13/22 Rx release APAP #1 ea 08/07/22 09/13/22 Rx atorvastatin 20 mg tablet 20 mg PO DAILY #90 tabs 08/29/22 09/13/22 Rx methylprednisolone 4 mg tablet 4 mg PO BID #20 tabs 09/02/22 09/13/22 Rx (Medrol) clopidogrel 75 mg tablet 75 mg PO DAILY 09/06/22 09/13/22 History metoprolol succinate 25 mg 12.5 mg PO DAILY 09/06/22 09/13/22 History tablet,extended release 24 hr valsartan 320 mg tablet 320 mg PO DAILY 09/06/22 09/13/22 History Patient hx anesthesia problems: none Family hx anesthesia problems: none Results Review: All pre-operative results and documents have been reviewed as part of the pre-operative evaluation. [facility] Past Medical History Medical History A-fib Benign essential hypertension BMI 29.0-29.9,adult BMI 30.0-30.9,adult Change in mole Chronic back pain Chronic knee pain Colon cancer screening Contact dermatitis Encounter for preventive health examination Encounter for routine adult health examination without abnormal findings Hearing loss Impacted cerumen of both ears Impacted cerumen of left ear Lipoma of neck Night sweats On longterm drug therapy Pre-diabetes Pressure sensation in both ears Prostate cancer screening Skin lesion Tinnitus of both ears Tobacco abuse Tobacco use Vasovagal episode Surgical History Surgical History H/O cardiac catheterization No intervention 02/26/2022 H/O rhinoplasty Family History Family History Mother Patient's mother is in good health Sibling Patient's sister is in good health Father Family history of heart disease in male family member before age 55 Social History Social History Social History: The patient is and lives with his . He has 1 biological child and has 2 step children. 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 The patient smokes about 10-20 cigarettes a week. Any probably drinks alcohol 4 days a week. He usually drinks 7-10 beers when he does drink. Code status full code Smoking status: Former smoker Tobacco type: cigarettes Second hand tobacco smoke exposure: Yes Alcohol intake: current Substance use: current Substance use type: marijuana Other substance usage details: MARIJ[place]NA-RECREATIONAL Lack of Transportation: No Lack of Food: Never True Current Housing: I Have Housing Concerned About Future Housing: No Difficulty Paying Gas/Electric Bills: No Difficulty Paying for Meds: No Currently Unemployed: No Education: High School Diploma/GED Difficulty w/ Childcare or Family Care: No Living arrangements: with family Occupation/Education: occupation Gender identity (if verbalized by the patient): Male Sexual Orientation (if Verbalized by the Patient): Straight or Heterosexual Spiritual care concerns: No
[2022-09-13 09:46] VITALS: BP 109/64; PULSE 64; RESP 18; O2SAT 95
[2022-09-13 09:56] VITALS: BP 108/61; PULSE 71; RESP 22; O2SAT 97
[2022-09-13 10:06] VITALS: BP 137/94; PULSE 58; RESP 16; O2SAT 98
== END 2022-09-13 10:18 | disposition home or self-care (01) ==
PROVIDERS: PCP Internal Medicine; Visit Provider Internal Medicine Gastroenterology
PROC: 0DJD8ZZ Inspection of Lower Intestinal Tract, Via Natural or Artificial Opening Endoscopic (ICD-10-PCS; CPT 45378; principal; 2022-09-13 09:30)
DX: Z12.11 Encounter for screening for malignant neoplasm of colon (principal); K64.8 Other hemorrhoids; I48.91 Unspecified atrial fibrillation; I10 Essential (primary) hypertension; F17.210 Nicotine dependence, cigarettes, uncomplicated; F12.90 Cannabis use, unspecified, uncomplicated; Z79.02 Long term (current) use of antithrombotics/antiplatelets; Z79.82 Long term (current) use of aspirin
CPT/HCPCS: 45378; J2704; J7120

== ENCOUNTER 2023-02-24 08:42 | Outpatient (CLI) | payer OTHER, SELFPAY ==
[2023-02-24 09:19] LABS: Appearance Urine Clear (Clear); Bilirubin Urine Negative (Negative); Blood Urine Negative (Negative); Color Urine Yellow (Yellow); Glucose Urine UA Negative (Negative); Ketones Urine Trace mg/dL (Negative); Leukocyte Esterase Ur Negative LEU/UL (Negative); Nitrate Urine Negative (Negative); Protein Urine Negative (Negative); Specific Grav Ur 1.024 (1.001-1.035); Urobilinogen Urine 0.2 mg/dL (<2.0); pH Urine 6.5 (5.0-9.0)
[2023-02-24 09:21] LABS: Basophils Absolute Auto 0.1 K/mm3 (0.0-0.1); Basophils Percent Auto 1.1 % (0.2-1.2); Eosinophils Absolute Auto 0.2 K/mm3 (0-0.3); Eosinophils Percent Auto 2.9 % (0-4.4); Hematocrit 45.4 % (42.0-52.0); Hemoglobin 14.6 g/dL (14.0-18.0); Immature Granulocyte Absolute 0.01 K/mm3 (0.00-0.031); Immature Granulocyte Percent A 0.1 % (0-0.5); Lymphocytes Absolute Auto 2.27 K/mm3 (0.9-3.2); Lymphocytes Percent Auto 30.1 % (18.3-44.2); Mean Corpuscular HGB Conc 32.2 g/dl (32-36); Mean Corpuscular Hemoglobin 28.3 pg (26-34); Mean Corpuscular Volume 88.2 fl (80-100); Mean Platelet Volume 10.4 fl (7.4-10.4); Monocytes Absolute Auto 0.6 K/mm3 (0.1-0.6); Monocytes Percent Auto 8.5 % (2.6-8.5); Neutrophils Absolute Auto 4.3 K/mm3 (1.3-6.7); Neutrophils Percent Auto 57.3 % (45.5-73.1); Platelet Count Result 289 k/mm3 (150-375); Red Blood Count 5.15 M/mm3 (4.6-6.20); Red Cell Distribution Width 13.4 % (11.5-14.5); White Blood Count 7.6 K/mm3 (4.5-10.0)
[2023-02-24 09:22] LABS: Add Urine Microscopic? NO
[2023-02-24 09:37] LABS: Alanine Aminotransferase 19 U/L (6-50); Albumin Level 4.3 g/dL (3.5-5.1); Alkaline Phosphatase 50 U/L (38-126); Anion Gap 6 mmol/L (8-16); Aspartate Amino Transferase 22 U/L (17-59); Bilirubin,Total 0.4 mg/dL (0.2-1.3); Blood Urea Nitrogen 16 mg/dL (9-20); Calcium 9.3 mg/dL (8.4-10.2); Carbon Dioxide 30 mmol/L (22-30); Chloride 104 mmol/L (98-107); Cholesterol 102 mg/dL (0-200); Estimated Glomerular Filt Rate > 60; Glucose 112 mg/dL (65-110); HDL Direct 47 mg/dL; Potassium 4.4 mmol/L (3.4-5.0); Sodium 140 mmol/L (137-145); Triglycerides < 30 mg/dL (<150)
[2023-02-24 09:48] LABS: LDL Cholesterol Direct 42 mg/dL
[2023-02-24 09:55] LABS: Vitamin D 25 Hydroxy 74.9 ng/mL
== END 2023-02-24 08:43 | disposition home or self-care (01) ==
PROVIDERS: PCP Internal Medicine; Visit Provider Internal Medicine
DX: I10 Essential (primary) hypertension (principal); Z13.29 Encounter for screening for other suspected endocrine disorder; Z79.899 Other long term (current) drug therapy; Z13.220 Encounter for screening for lipoid disorders; E55.9 Vitamin D deficiency, unspecified
CPT/HCPCS: 36415; 80053; 80061; 81003; 82306; 84439; 84443; 85025

== ENCOUNTER 2023-09-08 08:53 | Outpatient (CLI) | payer OTHER, SELFPAY ==
[2023-09-08 09:34] LABS: Basophils Absolute Auto 0.1 K/mm3 (0.0-0.1); Basophils Percent Auto 1.5 % (0.2-1.2); Eosinophils Absolute Auto 0.2 K/mm3 (0-0.3); Eosinophils Percent Auto 3.4 % (0-4.4); Hematocrit 45.1 % (42.0-52.0); Hemoglobin 14.5 g/dL (14.0-18.0); Immature Granulocyte Absolute 0.02 K/mm3 (0.00-0.031); Immature Granulocyte Percent A 0.3 % (0-0.5); Lymphocytes Absolute Auto 1.92 K/mm3 (0.9-3.2); Lymphocytes Percent Auto 29.3 % (18.3-44.2); Mean Corpuscular HGB Conc 32.2 g/dl (32-36); Mean Corpuscular Hemoglobin 28.3 pg (26-34); Mean Corpuscular Volume 87.9 fl (80-100); Mean Platelet Volume 10.5 fl (7.4-10.4); Monocytes Absolute Auto 0.6 K/mm3 (0.1-0.6); Monocytes Percent Auto 8.4 % (2.6-8.5); Neutrophils Absolute Auto 3.8 K/mm3 (1.3-6.7); Neutrophils Percent Auto 57.1 % (45.5-73.1); Platelet Count Result 301 k/mm3 (150-375); Red Blood Count 5.13 M/mm3 (4.6-6.20); Red Cell Distribution Width 13.3 % (11.5-14.5); White Blood Count 6.6 K/mm3 (4.5-10.0)
[2023-09-08 09:52] LABS: Alanine Aminotransferase 16 U/L (6-50); Albumin Level 4.4 g/dL (3.5-5.1); Alkaline Phosphatase 52 U/L (38-126); Anion Gap 1 mmol/L (8-16); Aspartate Amino Transferase 22 U/L (17-59); Bilirubin,Total 0.6 mg/dL (0.2-1.3); Blood Urea Nitrogen 18 mg/dL (9-20); Calcium 9.6 mg/dL (8.4-10.2); Carbon Dioxide 30 mmol/L (22-30); Chloride 107 mmol/L (98-107); Cholesterol 104 mg/dL (0-200); Estimated Glomerular Filt Rate > 60; Glucose 111 mg/dL (65-110); HDL Direct 49 mg/dL; Potassium 4.3 mmol/L (3.4-5.0); Sodium 138 mmol/L (137-145); Triglycerides < 30 mg/dL (<150)
[2023-09-08 10:02] LABS: LDL Cholesterol Direct 49 mg/dL
[2023-09-08 10:37] LABS: Free T4 Free Thyroxine 0.81 ng/mL (0.78-2.19); Vitamin D 25 Hydroxy 58.9 ng/mL
== END 2023-09-08 08:54 | disposition home or self-care (01) ==
LOC: ANHLAB 08:55
PROVIDERS: PCP Internal Medicine; Visit Provider Internal Medicine
DX: E55.9 Vitamin D deficiency, unspecified (principal); Z13.29 Encounter for screening for other suspected endocrine disorder; Z79.899 Other long term (current) drug therapy; Z13.220 Encounter for screening for lipoid disorders; R73.03 Prediabetes
CPT/HCPCS: 36415; 80053; 80061; 82306; 83036; 84439; 84443; 85025

== ENCOUNTER 2024-03-10 07:33 | Inpatient (IN) | payer OTHER, SELFPAY ==
[2024-03-10] VITALS (22 sets, daily range): BP systolic 112–146; BP diastolic 73–91; PULSE 42–62; RESP 14–22; TEMP 36.2–37; O2SAT 95–100; BMI 24.4
--- NOTE | 2024-03-10 | ECHO_ITS ---
Patient Info Name: Wale Byrd Age: 48 years : 1975 Gender: Male Ht: 67 in Wt: 166 lbs BSA: 1.90 m2 HR: 47 bpm BP: 132 / 89 mmHg Technical Quality: Fair Exam Date: 03/10/2024 3:26 PM Exam Location: Echo Lab Patient Status: Inpatient Admit Date: 03/10/2024 Staff Ordering Physician: Josesito Jackson DO Trackless Trolley Driver: Isaac Garcia RDCS Attending Provider: Kiel Hassan MD Referring Physician: Manuel SHEPARD; Exam Type: CA echo dop color flow w con Study Info Indications I21.4 - Non-ST elevation (NSTEMI) myocardial infarction Complete two-dimensional, color flow and Doppler transthoracic echocardiogram is performed with contrast to opacify the left ventricle and to improve the deliniation of the left ventricle endocardial borders. Contrast/Agitated Saline Contrast/Ag. Saline: Definity Amount: 2.00 ml IV Access Condition: patent with no signs of infiltration Summary 1. Definity contrast administered improved wall motion interpretation. 2. Left ventricular chamber dimension is mildly enlarged. 3. Left ventricular systolic function is moderately reduced, estimated at 35-40%. 4. Basal to mid segments are severely hypokinetic to akinetic with preserved and normal contractility of mid to apical segments. This is suggestive of takotsubo cardiomyopathy. 5. The left ventricular diastolic function is grade I diastolic dysfunction. 6. E/e' 7 is not elevated. Left Ventricle Definity contrast administered improved wall motion interpretation. Basal to mid segments are severely hypokinetic to akinetic with preserved and normal contractility of mid to apical segments. This is suggestive of takotsubo cardiomyopathy. E/e' 7 is not elevated. Left ventricular chamber dimension is mildly enlarged. Left ventricular systolic function is moderately reduced, estimated at 35-40%. The left ventricular diastolic function is grade I diastolic dysfunction. Right Ventricle Right ventricular chamber dimension is normal. Right ventricular systolic function is normal. Left Atria Left atrial chamber dimension is normal. Right Atria Right atrial chamber dimension is normal. Aortic Valve The aortic valve is trileaflet. There is no aortic valve stenosis. There is no aortic valve regurgitation. Pulmonic Valve There is no pulmonic regurgitation. Mitral Valve There is no mitral valve stenosis. There is no mitral valve regurgitation. Tricuspid Valve There is no tricuspid valve regurgitation. Pericardium/Pleural There is no pericardial effusion. Inferior Vena Cava Normal inferior vena cava with >50% collapse upon inspiration consistent with normal right atrial pressure, 5 mmHg. Aorta The aortic root size at the sinus of Valsalva is normal. Left Ventricular Outflow Tract Name Value Normal LVOT 2D LVOT Diameter 2.23 cm LVOT Doppler LVOT Peak Gradient 5 mmHg LVOT Mean Gradient 2 mmHg LVOT VTI 17.86 cm LVOT VTI/AV VTI Ratio 0.90 LVOT Stroke Volume 69.41 ml LVOT CO 3.60 l/min LVOT CI
--- NOTE | ~2024-03-10 | XR_ITS ---
XR chest 2V Ordering provider: Ramses Acuña MD History: 48 years Male with . palpitations . Comparison: February 26, 2022 FINDINGS: MEDIASTINUM: The cardiac silhouette is not enlarged. LUNGS: No infiltrates, effusions or pneumothorax. OTHER: No free air under the diaphragm. IMPRESSION: No acute cardiopulmonary pathology. Reviewed, dictated and finalized at location A.
--- NOTE | 2024-03-10 07:41 | ECG_ITS ---
Test Date: 2024-03-10 07:42:58 Measurements Intervals [place] Rate: 50 P: 40 MS: 159 QRS: 48 QRSD: 89 T: 43 QT: 407 QTc: 373 Interpretive Statements SINUS BRADYCARDIA CANNOT R/O SEPTAL INFARCT, AGE INDETERMINATE BASELINE ARTIFACT- I, II, III, AVR, AVL ABNORMAL ECG No previous ECG available for comparison Electronically Signed On 03-10-2024 08:31:34 CDT by Josesito Jackson D.O.
[2024-03-10 07:54] LABS: Basophils Absolute Auto 0.1 K/mm3 (0.0-0.1); Basophils Percent Auto 0.4 % (0.2-1.2); Eosinophils Percent Auto 0.2 % (0-4.4); Hematocrit 44.2 % (42.0-52.0); Hemoglobin 14.6 g/dL (14.0-18.0); Immature Granulocyte Absolute 0.04 K/mm3 (0.00-0.031); Immature Granulocyte Percent A 0.3 % (0-0.5); Lymphocytes Absolute Auto 1.87 K/mm3 (0.9-3.2); Lymphocytes Percent Auto 14.1 % (18.3-44.2); Mean Corpuscular Hemoglobin 28.6 pg (26-34); Mean Corpuscular Volume 86.5 fl (80-100); Mean Platelet Volume 10.2 fl (7.4-10.4); Monocytes Absolute Auto 0.6 K/mm3 (0.1-0.6); Monocytes Percent Auto 4.2 % (2.6-8.5); Neutrophils Absolute Auto 10.7 K/mm3 (1.3-6.7); Neutrophils Percent Auto 80.8 % (45.5-73.1); Platelet Count Result 302 k/mm3 (150-375); Red Blood Count 5.11 M/mm3 (4.6-6.20); Red Cell Distribution Width 13.3 % (11.5-14.5); White Blood Count 13.2 K/mm3 (4.5-10.0)
[2024-03-10 08:08] LABS: Alanine Aminotransferase 15 U/L (6-50); Albumin Level 4.3 g/dL (3.5-5.1); Alkaline Phosphatase 50 U/L (38-126); Aspartate Amino Transferase 49 U/L (17-59); Bilirubin,Total 0.4 mg/dL (0.2-1.3); Blood Urea Nitrogen 13 mg/dL (9-20); Calcium 9.4 mg/dL (8.4-10.2); Carbon Dioxide 26 mmol/L (22-30); Chloride 99 mmol/L (98-107); Estimated CRCL calculation 84 ml/min; Estimated Glomerular Filt Rate > 60; Glucose 132 mg/dL (65-110); Lipase 36 U/L (23-300); Potassium 3.9 mmol/L (3.4-5.0)
[2024-03-10 08:09] LABS: Prothrombin Time 13.9 Seconds (11.1-14.7)
[2024-03-10 08:10] LABS: Partial Thromboplastin Time 27.3 Seconds (22.3-36.8)
[2024-03-10 08:21] LABS: Anion Gap 10 mmol/L (4-12); Sodium 135 mmol/L (137-145)
--- NOTE | 2024-03-10 08:22 | ECG_ITS ---
Test Date: 2024-03-10 08:24:55 Measurements Intervals [place] Rate: 54 P: 44 ND: 168 QRS: 46 QRSD: 84 T: 46 QT: 383 QTc: 366 Interpretive Statements ALTERNATE LEAD PLACEMENT: Right Sided V1: V1, V2: V2, V3: V3R, V4: V4R, V5: V5R, V6: V6R SINUS BRADYCARDIA VENTRICULAR PREMATURE COMPLEX CANNOT R/O SEPTAL INFARCT, AGE INDETERMINATE BASELINE ARTIFACT- I, II, III, AVR, AVL, AVF, V1-V6 ABNORMAL ECG Compared to ECG 03/10/2024 07:42:58 NO SIGNIFICANT CHANGE Electronically Signed On 03-10-2024 08:33:29 CDT by Josesito Jackson D.O.
--- NOTE | 2024-03-10 08:44 | ED.GENADULT ---
HPI - General Adult General Chief complaint: Arrhythmia/Palpitations Stated complaint: feeling palpitations hx of Afib Time Seen by Provider: 03/10/24 08:03 History of Present Illness HPI narrative: This is a 48-year-old male presenting ED with a chief complaint of palpitations. Yesterday morning the patient had 4 hours of nausea vomiting diarrhea in the a.m.. He was then asymptomatic throughout the day until 2 in the morning this morning. At 2:00 a.m. he developed another episode of crampy abdominal pain with nausea vomiting diarrhea. While he was on the toilet he started to feel flushing throughout his body as well as a heaviness in the center of his chest that was nonradiating, moderate intensity. This pain resolved after 1 hour (2am - 3am) but he continued to have feelings of palpitations afterwards. At this time the patient is having intermittent palpitations. He does not have any chest pain fevers chills shortness of breath abdominal pain or urinary symptoms. Patient has a history of what he calls a mild heart attack. Related Data Home Medications Medication Instructions Recorded Confirmed aspirin 325 mg tablet,delayed 325 mg PO DAILY 09/17/22 09/18/23 release Allergies Allergy/AdvReac Type Severity Reaction Status Date / Time No Known Allergies Allergy Verified 09/18/23 08:50 PMFSH Past Medical History Medical History A-fib Benign essential hypertension BMI 28.0-28.9,adult BMI 29.0-29.9,adult BMI 30.0-30.9,adult Change in mole Chronic back pain Chronic knee pain Colon cancer screening Contact dermatitis Degenerative joint disease of hand Encounter for preventive health examination Encounter for routine adult health examination without abnormal findings Hearing loss Impacted cerumen of both ears Impacted cerumen of left ear Lipoma of neck Night sweats On prison drug therapy Pre-diabetes Pressure sensation in both ears Prostate cancer screening Skin lesion Tinnitus of both ears Tobacco abuse Tobacco use Vasovagal episode Surgical History Surgical History H/O cardiac catheterization No intervention 02/26/2022 H/O rhinoplasty Family History Family History Mother Patient's mother is in good health Sibling Patient's sister is in good health Father Family history of heart disease in male family member before age 55 Social History Social History Social History: The patient is and lives with his . He has 1 biological child and has 2 step children. 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 The patient smokes about 10-20 cigarettes a week. Any probably drinks alcohol 4 days a week. He usually drinks 7-10 beers when he does drink. Code status full code Smoking status: Former smoker Tobacco type: cigarettes Second hand tobacco smoke exposure: Yes Alcohol intake: current Substance use: current Substance use type: marijuana Other substance usage details: MARIJUANA-RECREATIONAL Do You Feel Safe in your Home?: Yes Lack of Transportation: No Lack of Food: Never True Current Housing: I Have Housing Concerned About Future Housing: No Difficulty Paying Gas/Electric Bills: No Difficulty Paying for Meds: No Currently Unemployed: No Education: High School Diploma/GED Difficulty w/ Childcare or Family Care: No Living arrangements: with family Occupation/Education: occupation Gender identity (if verbalized by the patient): Male Sexual Orientation (if Verbalized by the Patient): Straight or Heterosexual Spiritual care concerns: No Agree to blood products: Yes Exam Narrative: APPEARANCE: No apparent distress. Head: atraumatic. EYES: EOMI, NOSE: Atraumatic NECK: Trachea midline RESPIRATORY: No increased rate of breathing, clear
[2024-03-10] MEDS: HEPARIN SODIUM 5,000 UNITS/ML VIAL 4000 UNITS IV PUSH ×2 (09:00→16:43)
[2024-03-10] MEDS: HEPARIN SOD/D5W 100 UNITS/ML 25,000 UNITS/250 ML BAG 9 UNITS IV CONT (09:21)
--- NOTE | 2024-03-10 09:59 | PM.CNCAR ---
Assessment and Plan Assessment and plan (1) Elevated troponin: Code(s): R77.8 - Other specified abnormalities of plasma proteins Status: Acute Assessment and Plan: Symptoms not suggestive ACS. Troponin very elevated at 4.3. Could be due to gastroenteritis but generally we don't see it this elevated. Trend troponin. If troponin continue to rise or has recurrent chest pain, then [facility]. Continue heparin drip, aspirin, atorvastatin, Metoprolol, Valsartan. Obtain echo. (2) Benign essential hypertension: Code(s): I10 - Essential (primary) hypertension Status: Acute Assessment and Plan: Stable. (3) PAF (paroxysmal atrial fibrillation): Code(s): I48.0 - Paroxysmal atrial fibrillation Status: Acute Assessment and Plan: In Sinus rhythm. Probably due to significant alcohol intake and [place]. [id number] 1. On aspirin 325 mg daily and Metoprolol. History of Present Illness History of Present Illness Consult date/time: 03/10/24 09:59 Reason For Visit: NSTEMI Narrative: 48 yr old man who is my regular cardiology patient and a patient of Dr. Estevez presents to ER for chest pain. He has a history of atrial fibrillation, hypertension, smoking, alcohol intake, [place]. His who works with Dr. Estevez. States that yesterday morning he woke up and had abdominal bloating, and had diarhea. He felt like he had to vomit so he placed his finger in his throat and vomited and felt better. The rest of the day went OK. Then, at 2 am today he woke up with abdominal gasiness, abdominal pain, and had watery diarrhea. And after that felt palpitations and chest pressure for an hour. He then came to ER for evaluation. No longer having chest pains, or sob, or abdominal pain. Reports that 2 nights ago he had fresh broccoli with raisin salad and brussel sprouts. He only had one alcoholic drink in last 3 months and only smokes when he drinks. He can walk several blocks without any problems. Admits to snoring, stops breathing, wakes a up a couple of times a night to use restroom and daytime sleepiness. Denies chest pain, orthopnea, PND, edema, dizziness. Previously, he was hospitalized for chest pain and had 6 beat NSVT and troponin peaked at 3 and found to have sluggish flow in LAD only. He has not had anymore palpitations. Cardiovascular Procedures Software Build Engineer:: 02/26/[address] Santos: Normal coronaries but had sluggish flow in LAD; could be due to dissolved thrombus. Echo/MUGA:: 02/26/22 Echo: EF 50-55%, posterior wall is hypokinetic. 05/08/16 Echo: EF 55%, mild LVH, grade II diastolic dysfunction (E/e' 5), LA upper limits of normal, thin and hypermobile atrial septum with no shunt by doppler, trace TR/PI. Electrophysiology:: 03/12/22 17 days event monitor: Sinus rhythm, HR range 37-120 bpm; average 70 bpm; 37 bpm was on 03/22/22 at 06:29; <1% PAC and 1% PVC. 02/26/22 EKG: Sinus bradycardia at 55 bpm anteroseptal infarct, age indeterminate. 11/06/21 EKG: Sinus bradycardia at 46 bpm. 10/19/21 EKG: Sinus rhythm, cannot r/o septal infarct, age indeterminate, nonspecific T wave in inferior leads. 10/19/21 EKG: Atrial fibrillation at 89 bpm, LVH, ST-T wave abnormality- consider inferior ischemia. 05/08/16 48 hour holter: Sinus rhythm, HR range 38-124 bpm; average HR 62 bpm; 12 PAC's, 13 couplets; 153 PVC's. Stress Tests:: 07/12/22 Sleep study: Mod [place] with desat 83%. Review of Systems Review of Systems: All systems reviewed & are unremarkable except as noted in HPI and below Constitutional: Constitutional: Reports as per HPI, Denies chills and Denies fever(s) Cardiovascular: Cardiovascular: Reports as per HPI, Reports chest pain and Reports irregular heart rhythm Respiratory: Respiratory: Reports as per HPI and Denies dyspnea Gastrointestinal: Gastrointestinal: Reports as per HPI, Reports abdominal pain, Reports bloating and Reports diarrhea Genitourinary: Genitourinary: Reports as per HPI and Denies dysuria Musculoskeletal
--- NOTE | 2024-03-10 10:22 | ECG_ITS ---
Test Date: 2024-03-10 10:30:30 Measurements Intervals [place] Rate: 42 P: 39 NC: 171 QRS: 50 QRSD: 84 T: 49 QT: 417 QTc: 352 Interpretive Statements SINUS BRADYCARDIA VOLTAGE CRITERIA FOR LVH CANNOT R/O SEPTAL INFARCT, AGE INDETERMINATE ABNORMAL ECG Compared to ECG 03/10/2024 08:24:55 HEART RATE HAS DECREASED Electronically Signed On 03-10-2024 10:36:23 CDT by Josesito Jackson D.O.
--- NOTE | 2024-03-10 12:01 | PM.IMHP ---
H&P: HPI History of Present Illness Date/Time: 03/10/24 12:01 Chief Complaint: Palpitations Narrative: 48 y/o M presents here with palpitations with PMH of [place], AFib (w/RVR), HTN, and prediabetes. The patient presents here from home for further evaluation of palpitations. Initially started with symptoms yesterday morning (03/09) with nausea, vomiting, and diarrhea that started at 6 a.m. and lasted for approximately 4 hours. Emesis was non-bloody. Patient then felt somewhat improved with today with resolution of N/V/D. Patient was able to eat a small amount for dinner. However woke up this morning at 2:00 a.m. with abdominal pain. He describes the abdominal pain as crampy, lower abdominal, nonradiating, intermittent, improved post-defection/Tums, no aggravating factors. Pain was accompanied by recurrence of nausea, vomiting, and felt like he needed to pass a BM. While he was in the bathroom he developed a flushed sensation/chills, unsure if it occurred before or after developing midsternal heaviness. He described the chest discomfort as midsternal, nonradiating, constant, no aggravating factors, and alleviated by ambulation. The chest discomfort lasted for approximately 1 hour and resolved around 3:00 a.m. after the patient took his dose of his home metoprolol early. Despite resolution of chest discomfort, patient continued to have intermittent palpitations. Denies associated dizziness, pre-syncope, fever or body aches. Initial VS at presentation: 97.6? F, HR 62, RR 14, 112/85, and 97% on RA. ED workup showed: WBC 13.2, no anemia, normal coags, sodium 135, creatinine is 0.9 and GFR >60, glucose 132, and initial troponin 4.3. CXR showed no acute cardiopulmonary pathology. Initial EKG showed sinus bradycardia, rate 50, cannot rule out septal infarct age indeterminate. Review of Systems Review of Systems: All systems reviewed & are unremarkable except as noted in HPI and below [facility] Past Medical History Medical History A-fib Benign essential hypertension Change in mole Chronic back pain Chronic knee pain Contact dermatitis Degenerative joint disease of hand Hearing loss Lipoma of neck Night sweats [place] (obstructive sleep apnea) Pre-diabetes Skin lesion Tinnitus of both ears Tobacco use Vasovagal episode Surgical History Surgical History H/O cardiac catheterization No intervention 02/26/2022 H/O rhinoplasty Family History Family History Mother Patient's mother is in good health Sibling Patient's sister is in good health Father Family history of heart disease in male family member before age 55 Social History Social History Social History: The patient is and lives with his . He has 1 biological child and has 2 step children. 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 The patient smokes about 10-20 cigarettes a week. Any probably drinks alcohol 4 days a week. He usually drinks 7-10 beers when he does drink. Code status full code Smoking packs per day: 1 Smoking cigarettes per day: 20.0 Years smoked: 30 Smoking pack-years: 30.00 Smoking status: Former smoker Tobacco type: cigarettes Second hand tobacco smoke exposure: Yes Smoking end date: 02/25/22 Alcohol intake: current Drinks per week: 2 Substance use: current Substance use type: marijuana Other substance usage details: MARIJUANA-RECREATIONAL Do You Feel Safe in your Home?: Yes Lack of Transportation: No Lack of Food: Never True Current Housing: I Have Housing Concerned About Future Housing: No Difficulty Paying Gas/Electric Bills: No Difficulty Paying for Meds: No Currently Unemployed: No Education: High School Diploma/GED Difficulty w/ Childcare or Family Care: No Living arrangem
--- NOTE | 2024-03-10 14:57 | PC.NURSE ---
This patient, Wale Byrd, was admitted to Intensive Care Unit-6. Patient/family oriented to hospital policies and general routines including ID bracelet, bed and alarms, visiting hours, pain management, procedures, bathroom and other care routines, personal items, smoking policy, room service/diet, and visiting hours. Information on how to activate the Rapid Response Team has been discussed. Patient/Family are encouraged to report perceived risks to care and to ask questions if they do not understand what they are told or what they should do. Received report from NEGIN Lamar @[id number]
[2024-03-10 15:06] LABS: Magnesium 1.9 mg/dL (1.6-2.3)
--- NOTE | 2024-03-10 15:10 | PC.NURSE ---
This patient, Wale Byrd, was received from [ICU-6 ] on 03/10/24 at 1511. Patient/family oriented to unit policies and routines
--- NOTE | 2024-03-10 15:13 | PC.NURSE ---
This patient, Wale Byrd, was transferred to [facility] via wheelchair without issue on 03/10/24 at 1510. Personal belongings sent with patient. Report given to Raza Dalton. Appropriate documentation sent with patient.
[2024-03-10 16:17] LABS: Basophils Absolute Auto 0.1 K/mm3 (0.0-0.1); Basophils Percent Auto 0.6 % (0.2-1.2); Eosinophils Absolute Auto 0.1 K/mm3 (0-0.3); Eosinophils Percent Auto 0.9 % (0-4.4); Hematocrit 42.8 % (42.0-52.0); Hemoglobin 14.5 g/dL (14.0-18.0); Immature Granulocyte Absolute 0.03 K/mm3 (0.00-0.031); Immature Granulocyte Percent A 0.3 % (0-0.5); Lymphocytes Absolute Auto 2.78 K/mm3 (0.9-3.2); Lymphocytes Percent Auto 27.5 % (18.3-44.2); Mean Corpuscular HGB Conc 33.9 g/dl (32-36); Mean Corpuscular Hemoglobin 29.2 pg (26-34); Mean Corpuscular Volume 86.3 fl (80-100); Mean Platelet Volume 10.5 fl (7.4-10.4); Monocytes Absolute Auto 0.7 K/mm3 (0.1-0.6); Monocytes Percent Auto 6.9 % (2.6-8.5); Neutrophils Absolute Auto 6.4 K/mm3 (1.3-6.7); Neutrophils Percent Auto 63.8 % (45.5-73.1); Platelet Count Result 287 k/mm3 (150-375); Red Blood Count 4.96 M/mm3 (4.6-6.20); Red Cell Distribution Width 13.4 % (11.5-14.5); White Blood Count 10.1 K/mm3 (4.5-10.0)
[2024-03-10 16:30] LABS: Partial Thromboplastin Time 31.8 Seconds (22.3-36.8)
[2024-03-10] MEDS: PERFLUTREN LIPID MICROSPHERES 1.5 ML VIAL DILUTED TO 10 ML TOTAL VOLUME IV PUSH (16:58)
--- NOTE | 2024-03-10 16:58 | IVDEFINITY ---
Prior to administration of IV Definity the patient was educated on the risks and benefits of the imaging enhancing agent including potential adverse side effects. The patient verbalized understanding. Allergies were verified. No exclusion criteria were identified and at least one of the following inclusion criteria were met: 1) physician request, 2) patient technically difficult to image (per the [place] [employer] Echocardi[employer] guidelines of two or more segments not discernable within the apical view), or 3) questionable left ventricular function. ?
[2024-03-10] MEDS: CALCIUM CARBONATE (TUMS) 500 MG (200 MG ELEMENTAL) PO (19:27)
[2024-03-10] MEDS: SACUBITRIL/VALSARTAN 24-26 MG TABLET 1 TAB PO (21:02)
[2024-03-10 23:25] LABS: Partial Thromboplastin Time 101.9 Seconds (22.3-36.8)
[2024-03-11] VITALS (11 sets, daily range): BP systolic 131–143; BP diastolic 83–87; PULSE 46–83; RESP 18; TEMP 36.2–36.6; O2SAT 96–97
[2024-03-11] MEDS: HEPARIN SOD/D5W 100 UNITS/ML 25,000 UNITS/250 ML BAG 12 UNITS IV CONT (05:13)
[2024-03-11 05:24] LABS: Basophils Absolute Auto 0.1 K/mm3 (0.0-0.1); Basophils Percent Auto 0.7 % (0.2-1.2); Eosinophils Absolute Auto 0.2 K/mm3 (0-0.3); Eosinophils Percent Auto 1.5 % (0-4.4); Hematocrit 45.3 % (42.0-52.0); Hemoglobin 15.1 g/dL (14.0-18.0); Immature Granulocyte Absolute 0.02 K/mm3 (0.00-0.031); Immature Granulocyte Percent A 0.2 % (0-0.5); Lymphocytes Absolute Auto 3.03 K/mm3 (0.9-3.2); Lymphocytes Percent Auto 31.3 % (18.3-44.2); Mean Corpuscular HGB Conc 33.3 g/dl (32-36); Mean Corpuscular Hemoglobin 28.8 pg (26-34); Mean Corpuscular Volume 86.3 fl (80-100); Mean Platelet Volume 10.5 fl (7.4-10.4); Monocytes Absolute Auto 0.7 K/mm3 (0.1-0.6); Monocytes Percent Auto 7.5 % (2.6-8.5); Neutrophils Absolute Auto 5.7 K/mm3 (1.3-6.7); Neutrophils Percent Auto 58.8 % (45.5-73.1); Platelet Count Result 275 k/mm3 (150-375); Red Blood Count 5.25 M/mm3 (4.6-6.20); Red Cell Distribution Width 13.4 % (11.5-14.5); White Blood Count 9.7 K/mm3 (4.5-10.0)
[2024-03-11 05:35] LABS: Partial Thromboplastin Time 76.4 Seconds (22.3-36.8)
[2024-03-11 05:38] LABS: Alanine Aminotransferase 14 U/L (6-50); Alkaline Phosphatase 51 U/L (38-126); Anion Gap 7 mmol/L (4-12); Aspartate Amino Transferase 35 U/L (17-59); Bilirubin,Total 0.6 mg/dL (0.2-1.3); Blood Urea Nitrogen 11 mg/dL (9-20); Calcium 9.4 mg/dL (8.4-10.2); Carbon Dioxide 27 mmol/L (22-30); Chloride 102 mmol/L (98-107); Cholesterol 130 mg/dL (0-200); Estimated CRCL calculation 84 ml/min; Estimated Glomerular Filt Rate > 60; Glucose 114 mg/dL (65-110); HDL Direct 51 mg/dL; Potassium 3.7 mmol/L (3.4-5.0); Sodium 136 mmol/L (137-145); Triglycerides 49 mg/dL (<150)
[2024-03-11 05:59] LABS: LDL Cholesterol Direct 47 mg/dL
[2024-03-11 07:10] LABS: NT Pro B Type Natriuretic Pept 3040 pg/mL (19.9-100)
--- NOTE | 2024-03-11 07:48 | PM.PNCARD ---
Progress Note: A&P Assessment and Plan (1) Elevated troponin: Code(s): R77.8 - Other specified abnormalities of plasma proteins Status: Acute Assessment and Plan: Due to Takotsubo cardiomyopathy. Symptoms not suggestive ACS. Troponin very elevated at 4.3. Could be due to gastroenteritis but generally we don't see it this elevated. Trend troponin. If troponin continue to rise or has recurrent chest pain, then [facility]. On heparin drip, aspirin, atorvastatin, Metoprolol, Valsartan. (2) Benign essential hypertension: Code(s): I10 - Essential (primary) hypertension Status: Chronic Assessment and Plan: Stable. (3) PAF (paroxysmal atrial fibrillation): Code(s): I48.0 - Paroxysmal atrial fibrillation Status: Chronic Assessment and Plan: In Sinus rhythm. Probably due to significant alcohol intake and [place]. [id number] 1. On aspirin 325 mg daily and Metoprolol. (4) Takotsubo cardiomyopathy: Code(s): I51.81 - Takotsubo syndrome Status: Acute Assessment and Plan: Appears euvolemic. Probably due to his father in September and beginning to sink in, and had gastroenteritis. 03/10/24 Echo: Mild LVE, EF 35-40%, Basal to mid segments are severe hypokinetic to akinetic with preserved mid to apical segments, grade I diastolic dysfunction (E/e' 7). Start Entresto, Carvedilol. Stop Valsartan and Metoprolol. October d/c home from cardiology standpoint and f/u with me in 1-2 weeks. Subjective Date/time seen: 03/11/24 07:48 Interval history: Denies chest pain or sob. Exam Const: General: cooperative, healthy appearing and comfortable Orientation/consciousness: oriented to person, oriented to place and oriented to time Resp: Auscultation: no crackles, no rales, no rhonchi and wheezes Other: Slight wheezes Cardio: Rate: regular rate Rhythm: regular rhythm Heart sounds: no murmurs Peripheral pulses: dorsalis pedis present Neuro: General: oriented to person, oriented to place and oriented to time Extrem: Right lower extremity: no edema Left lower extremity: no edema Objective Data Vital Signs Vital Signs: Vital Signs - 24 hr 03/10/24 09:00 03/10/24 08:00 03/10/24 08:01 Temperature Pulse Rate 47 L 47 L 48 L Respiratory Rate 14 22 H 17 Blood Pressure 128/89 126/79 Pulse Oximetry 97 97 95 Oxygen Delivery 03/10/24 08:17 03/10/24 10:24 03/10/24 11:03 Temperature 98.3 F Pulse Rate 48 L 62 47 L Respiratory Rate 16 18 20 Blood Pressure 136/88 130/91 H Pulse Oximetry 98 100 96 Oxygen Delivery 03/10/24 11:02 03/10/24 12:00 03/10/24 12:00 Temperature 98.3 F Pulse Rate 48 L 47 L 54 L Respiratory Rate 16 Blood Pressure 132/89 Pulse Oximetry 97 Oxygen Delivery 03/10/24 12:00 03/10/24 14:00 03/10/24 15:53 Temperature 97.1 F L Pulse Rate 54 L 48 L 42 L Respiratory Rate 16 18 Blood Pressure 132/79 Pulse Oximetry 97 99 Oxygen Delivery Room Air 03/10/24 16:00 03/10/24 16:00 03/10/24 18:00 Temperature Pulse Rate 53 L 57 L Respiratory Rate Blood Pressure Pulse Oximetry Oxygen Delivery Room Air 03/10/24 20:15 03/10/24 20:00 03/10/24 23:29 Temperature 98.6 F Pulse Rate 48 L 48 L Respiratory Rate 18 18 Blood Pressure 146/88 H Pulse Oximetry 97 97 97 Oxygen Delivery Room Air Room Air 03/10/24 20:00 03/10/24 22:00 03/11/24 00:00 Temperature Pulse Rate 49 L 50 L 46 L Respiratory Rate 18 Blood Pressure Pulse Oximetry 96 Oxygen Delivery Room Air 03/11/24 00:00 03/11/24 02:00 03/10/24 23:54 Temperature 97.7 F Pulse Rate 51 L 53 L 46 L Respiratory Rate 18 Blood Pressure 120/73 Pulse Oximetry 96 Oxygen Delivery 03/11/24 04:00 03/11/24 05:20 03/11/24 04:00 Temperature 97.8 F Pulse Rate 53 L 54 L 52 L Respiratory Rate 18 18 Blood Pressure 132/87 Pulse Oximetry 96 97 Oxygen Delivery Room Air 03/11/24 06:00 Temperature P
[2024-03-11] MEDS: carvediloL 3.125 MG TABLET PO (08:19)
[2024-03-11] MEDS: PANTOPRAZOLE 40 MG TABLET PO (08:19)
[2024-03-11] MEDS: ASPIRIN 81 MG ENTERIC TABLET PO (08:20)
[2024-03-11] MEDS: ATORVASTATIN 10 MG TABLET PO (08:20)
[2024-03-11] MEDS: CLOPIDOGREL BISULFATE 75 MG TABLET PO (08:20)
[2024-03-11] MEDS: SACUBITRIL/VALSARTAN 24-26 MG TABLET 1 TAB PO (08:20)
--- NOTE | 2024-03-11 10:07 | WPDCDIQUERY2 ---
CDI Query Clarification Request ER has documented a clinical impression of gastroenteritis. Documented Yesterday morning the patient had 4 hours of nausea vomiting diarrhea in the a.m.. He was then asymptomatic throughout the day until 2 in the morning this morning. At 2:00 a.m. he developed another episode of crampy abdominal pain with nausea vomiting diarrhea. Progress note reads, He describes the abdominal pain as crampy, lower abdominal, nonradiating, intermittent, improved post-defection/Tums, no aggravating factors. Pain was accompanied by recurrence of nausea, vomiting, and felt like he needed to pass a BM . Please clarify if gastroenteritis has been ruled in or ruled out. Thank you. <Angelika Martinez RN - Last Filed: 03/11/24 10:11> Clarified Diagnosis Clarified Diagnosis: Patient symptoms very shortly lived most likely patient had a food poisoning unlikely gastroenteritis <Kiel Hassan MD - Last Filed: 03/28/24 19:53>
--- NOTE | 2024-03-11 11:55 | PM.DS ---
DS: Admitting Diagnosis Discharge Date 03/11/2024 Admitting Diagnosis palpitation DS: Discharge Diagnosis Discharge Diagnosis (1) Non-ST elevation (NSTEMI) myocardial infarction: Code(s): I21.4 - Non-ST elevation (NSTEMI) myocardial infarction Status: Acute (2) PAF (paroxysmal atrial fibrillation): Code(s): I48.0 - Paroxysmal atrial fibrillation Status: Chronic (3) A-fib: Qualifiers: Atrial fibrillation type: unspecified Qualified Code(s): I48.91 - Unspecified atrial fibrillation Code(s): I48.91 - Unspecified atrial fibrillation Status: Acute (4) Benign essential hypertension: Code(s): I10 - Essential (primary) hypertension Status: Chronic (5) [place] (obstructive sleep apnea): Code(s): G47.33 - Obstructive sleep apnea (adult) (pediatric) Status: Chronic DS: Summary Hospital Course Hospital Course: Prior to comming to the ER patient had nuasea and later in the evening was awaken with palpitation and present to the ER, patient was found to have significant elevated tropes suspected NSTEMI, patient was started on heparin, asa, and BB, patient was seen by Dr. Jackson suggested NSTEMI most likely due to Takotsubo cardiomyopathy. Symptoms not suggestive ACS. Troponin very elevated at 4.3. Could be due to gastroenteritis but generally it is not seen this elevated. recommended to trend troponin. If troponin continue to rise or has recurrent chest pain, then [facility]. however patient tropes are trending down, patient has no CP and clinically stable, will discharge patient today. Time Spent with Patient Time attestation: Total time spent providing and/or coordinating discharge services: Exam Narrative: Patient is comfortable, NAD HEENT: eyes are clear and none icteric LUNGS:CTA HEART: RR S1S2 ABD: BS+, Soft and nontender Lower extremities: no edema SKIN: nonjaundiced Neuro: grossly intact. DS: Data Data Completed and Pending Labs on day of discharge: Labs from last 24 hours 03/11/24 03/11/24 03/11/24 04:53 04:52 04:46 WBC 9.7 RBC 5.25 Hgb 15.1 Hct 45.3 MCV 86.3 MCH 28.8 MCHC 33.3 RDW 13.4 Plt Count 275 MPV 10.5 H Immature Gran % (Auto) 0.2 Neut % (Auto) 58.8 Lymph % (Auto) 31.3 [place] % (Auto) 7.5 Eos % (Auto) 1.5 Baso % (Auto) 0.7 Lymph # (Auto) 3.03 [place] # (Auto) 0.7 H Eos # (Auto) 0.2 Baso # (Auto) 0.1 Abs Immat Gran (auto) 0.02 Absolute Neuts (auto) 5.7 Absolute Nucleated RBC 0.000 Nucleated RBC % 0.0 PT INR APTT 76.4 H Sodium 136 L Potassium 3.7 Chloride 102 Carbon Dioxide 27 Anion Gap 7 BUN 11 Creatinine 0.90 Estim Creat Clear Calc 84 Estimated GFR > 60 Glucose 114 H Hemoglobin A1c 6.0 H Calcium 9.4 Magnesium Total Bilirubin 0.6 AST 35 ALT 14 Alkaline Phosphatase 51 Troponin I 1.200 H* NT-Pro-B Natriuret Pep 3040 H Total Protein 7.0 Albumin 4.0 Triglycerides 49 Cholesterol 130 LDL Cholesterol Direct 47 HDL Direct 51 TSH (Reflex) 1.210 03/10/24 03/10/24 03/10/24 23:06 16:03 14:50 WBC 10.1 H RBC 4.96 Hgb 14.5 Hct 42.8 MCV 86.3 MCH 29.2 MCHC 33.9 RDW 13.4 Plt Count 287 MPV 10.5 H Immature Gran % (Auto) 0.3 Neut % (Auto) 63.8 Lymph % (Auto) 27.5 [place] % (Auto) 6.9 Eos % (Auto) 0.9 Baso % (Auto) 0.6 Lymph # (Auto) 2.78 [place] # (Auto) 0.7 H Eos # (Auto) 0.1 Baso # (Auto) 0.1 Abs Immat Gran (auto) 0.03 Absolute Neuts (auto) 6.4 Absolute Nucleated RBC 0.000 Nucleated RBC % 0.0 PT 14.0 INR 1.0 APTT 101.9 H 31.8 Sodium Potassium Chloride Carbon Dioxide Anion Gap BUN Creatinine Estim Creat Clear Calc Estimated GFR Glucose Hemoglobin A1c Calcium Magnesium 1.9 Total Bilirubin AST ALT Alkaline Phosphatase
== END 2024-03-11 13:53 | disposition home or self-care (01) | DRG 281 ==
LOC: ANHED 09:32 → ANHICU 10:05 → ANHIMU 15:11
PROVIDERS: Internal Medicine Cardiovascular Disease; Student in an Organized Health Care Education/Training Program; Admitting Provider Family Medicine; Emergency Provider Emergency Medicine; PCP Internal Medicine; Visit Provider Family Medicine
DX: I21.4 Non-ST elevation (NSTEMI) myocardial infarction (principal); I51.81 Takotsubo syndrome; I10 Essential (primary) hypertension; I48.0 Paroxysmal atrial fibrillation; K52.9 Noninfective gastroenteritis and colitis, unspecified; M19.049 Primary osteoarthritis, unspecified hand; M54.9 Dorsalgia, unspecified; G89.29 Other chronic pain; R73.03 Prediabetes; F17.210 Nicotine dependence, cigarettes, uncomplicated; Z79.82 Long term (current) use of aspirin
CPT/HCPCS: 36415; 71046; 80053; 80061; 83036; 83690; 83735; 83880; 84443; 84484; 85025; 85610; 85730; 93005; 94762; 96374; 99291; A9270; C8929; J1644; Q9957

== ENCOUNTER 2024-03-15 08:56 | Outpatient (CLI) | payer OTHER, SELFPAY ==
[2024-03-15 09:20] LABS: Basophils Absolute Auto 0.1 K/mm3 (0.0-0.1); Basophils Percent Auto 1.1 % (0.2-1.2); Eosinophils Absolute Auto 0.3 K/mm3 (0-0.3); Eosinophils Percent Auto 3.7 % (0-4.4); Hematocrit 43.8 % (42.0-52.0); Hemoglobin 14.8 g/dL (14.0-18.0); Immature Granulocyte Absolute 0.02 K/mm3 (0.00-0.031); Immature Granulocyte Percent A 0.2 % (0-0.5); Lymphocytes Absolute Auto 1.75 K/mm3 (0.9-3.2); Mean Corpuscular HGB Conc 33.8 g/dl (32-36); Mean Corpuscular Hemoglobin 29.4 pg (26-34); Mean Corpuscular Volume 87.1 fl (80-100); Monocytes Absolute Auto 0.5 K/mm3 (0.1-0.6); Monocytes Percent Auto 6.5 % (2.6-8.5); Neutrophils Absolute Auto 5.6 K/mm3 (1.3-6.7); Neutrophils Percent Auto 67.5 % (45.5-73.1); Platelet Count Result 292 k/mm3 (150-375); Red Blood Count 5.03 M/mm3 (4.6-6.20); Red Cell Distribution Width 13.1 % (11.5-14.5); White Blood Count 8.3 K/mm3 (4.5-10.0)
[2024-03-15 09:48] LABS: Alanine Aminotransferase 12 U/L (6-50); Albumin Level 4.4 g/dL (3.5-5.1); Alkaline Phosphatase 47 U/L (38-126); Anion Gap 6 mmol/L (4-12); Aspartate Amino Transferase 19 U/L (17-59); Bilirubin,Total 0.4 mg/dL (0.2-1.3); Blood Urea Nitrogen 16 mg/dL (9-20); Calcium 9.5 mg/dL (8.4-10.2); Carbon Dioxide 30 mmol/L (22-30); Chloride 103 mmol/L (98-107); Cholesterol 103 mg/dL (0-200); Estimated Glomerular Filt Rate > 60; Glucose 109 mg/dL (65-110); HDL Direct 46 mg/dL; Potassium 4.5 mmol/L (3.4-5.0); Sodium 139 mmol/L (137-145); Triglycerides 34 mg/dL (<150)
[2024-03-15 09:59] LABS: LDL Cholesterol Direct 37 mg/dL
[2024-03-15 10:19] LABS: Free T4 Free Thyroxine 0.93 ng/mL (0.78-2.19)
== END 2024-03-15 08:57 | disposition home or self-care (01) ==
PROVIDERS: PCP Internal Medicine; Visit Provider Internal Medicine
DX: Z13.220 Encounter for screening for lipoid disorders (principal); Z13.29 Encounter for screening for other suspected endocrine disorder; I10 Essential (primary) hypertension; Z79.899 Other long term (current) drug therapy
CPT/HCPCS: 36415; 80053; 80061; 84439; 84443; 85025

== ENCOUNTER 2024-08-03 08:31 | Outpatient (CLI) | payer OTHER, SELFPAY ==
--- NOTE | 2024-08-03 08:39 | ECHO_ITS ---
Patient Info Name: Wale Byrd Age: 49 years : 1975 Gender: Male Ht: 67 in Wt: 165 lbs BSA: 1.89 m2 HR: 48 bpm BP: 140 / 89 mmHg Technical Quality: Good Exam Date: 08/03/2024 8:45 AM Exam Location: Echo Lab Patient Status: Outpatient Admit Date: 08/03/2024 Staff Ordering Physician: Josesito Jackson DO Drainage Engineer: Judy Roman RDCS Attending Provider: Josesito Jackson DO Referring Physician: Manuel SHEPARD; Exam Type: CA echo dop bubble study w con Study Info Indications I51.81 - TAKOTSUBO SYNDROME Complete two-dimentional, color flow and Doppler transthoracic echocardiogram is performed with agitated saline and with contrast to opacify the left ventricle and to improve the delineation of the left ventricle endocardial borders. Contrast/Agitated Saline Contrast/Ag. Saline: Agitated Saline Amount: 20.00 ml Administered By: Judy Roman RDCS New IV Access: Antecubital Space and Right Contrast/Ag. Saline: Definity Amount: 2.00 ml Administered By: Judy Roman RDCS New IV Access: Antecubital Space and Right Site Condition: No extravasation, Site dressing applied and IV removed Summary 1. Definity contrast administered improved wall motion interpretation. 2. Left ventricular chamber dimension is mildly enlarged. 3. Left ventricular systolic function is normal, estimated at 60-65%. 4. The left ventricular diastolic function is grade II diastolic dysfunction. 5. E/e' 6 is not elevated. 6. Global longitudinal strain is normal at -17.1%. 7. Atrial septal aneurysm. 8. No pulmonary hypertension, estimated pulmonary arterial systolic pressure is 27 mmHg. 9. There is trace pulmonic regurgitation. Left Ventricle E/e' 6 is not elevated. Global longitudinal strain is normal at -17.1%. Definity contrast administered improved wall motion interpretation. Left ventricular chamber dimension is mildly enlarged. Left ventricular systolic function is normal, estimated at 60-65%. The left ventricular diastolic function is grade II diastolic dysfunction. Right Ventricle Right ventricular systolic function is normal and with normal TAPSE 2.6 cm. Right ventricular chamber dimension is normal. Left Atria Left atrial chamber dimension is normal. Right Atria Right atrial chamber dimension is normal. Atrial Septum Agitated saline injection with and without valsalva maneuver opacified right side cardiac chambers without shunt to left side cardiac chambers. Atrial septal aneurysm. Intact interatrial septum visualized by 2D and agitated saline imaging. Aortic Valve The aortic valve is trileaflet. There is no aortic valve stenosis. There is no aortic valve regurgitation. Pulmonic Valve There is trace pulmonic regurgitation. Mitral Valve There is no mitral valve stenosis. There is no mitral valve regurgitation. Tricuspid Valve There is no tricuspid valve regurgitation. No pulmonary hypertension, estimated pulmonary arterial systolic pressure is 27 mmHg. Pericardium/Pleural There is no pericardial effusion. Inferior Vena Cava Normal inferior vena cava with >50% collapse upon inspiration consistent with normal right atrial pressure, 5 mmHg. Aorta The aortic root size at the sinus of Valsalva is normal. Left Ventricular Outflow Tract Name Value Normal LVOT 2D LVOT Diameter 2.0 cm LVOT Doppler LVOT Peak Gradient 3 mmHg LVOT Mean Gradient 1 mmHg LVOT VTI 18 cm LVOT VTI/AV VTI Ratio 0.8 LVOT Stroke Volume 54 ml LVOT CO 2.6 l/min LVOT CI 1.4 l/min/m2 Pulmonic Valve Name Value Normal RVOT Doppler RVOT Peak Gradient 1 mmHg PV Doppler PV Peak Gradient 3 mmHg Mitral Valve Name Value Normal MV Doppler MV Decel [place] 229 cm/s2 MV PHT 67 ms MV Area (PHT) 3.3 cm2 4.0-5.0 MV Diastolic Function MV E Peak Velocity 53 cm/s MV A Peak Velocity 52 cm/s MV E/A 1.0 MV Decel Time 231 ms Tricuspid Valve Name Value Normal TV Regurgitation Doppler TR Peak Velocity 237 cm/s TR Peak Gradient 22 mmHg Estimated PAP/RSVP RA Pressure 5 mmHg <=5 PA Systolic Pressure 27 mmHg <36 RV Systolic Pressure 27 mmHg <36 Aorta Name Value Normal Ascending Aorta Ao Root Diameter (MM) 3.2 cm Ao Root Diam Index (MM) 1.7 cm/m2 Aortic Valve Name Value Normal AV Doppler AV Peak Velocity 108 cm/s AV Peak Gradient 5 mmHg AV Mean Gradient 3 mmHg AV VTI 23 cm AV Area (Cont Eq VTI) 2.4 cm2 >=3.0 AV Area (Cont Eq Desmond) 2.3 cm2 AV Regurgitation 2D LVOT Area 3.0 cm2 Ventricles Name Value Normal LV Dimensions 2D/MM IVS Diastolic Thickness (2D) 0.6 cm 0.6-1.0 IVS Diastole Thickness (MM) 0.6 cm 0.6-1.0 LVID Diastole (2D) 5.0 cm 4.2-5.8 LVID Diastole (MM) 6.1 cm 4.2-5.8 LVIW Diastolic Thickness (2D) 0.9 cm 0.6-1.0 LVIW Diastolic Thickness (MM) 0.7 cm 0.6-1.0 LVID Systole (2D) 3.3 cm 2.5-4.0 LVID Systole (MM) 3.9 cm 2.5-4.0 LVOT Diameter 2.0 cm LV Mass (2D Cubed) 124.62 g 88.00-224.00 LV Mass Index (2D Cubed) 66 g/m2 49-115 Relative Wall Thickness (2D) 0.38 LV Mass (MM Cubed) 151.72 g 88.00-224.00 LV Mass Index (MM Cubed) 80 g/m2 49-115 Relative Wall Thickness (MM) 0.25 LV Fractional Shortening/Ejection Fraction 2D/MM LV Fractional Shortening (2D) 33 % 25-43 LV Fractional Shortening (MM) 36 % 25-43 LV EF (MM Teicholz) 65 % 52-72 LV EF (2D Teicholz) 61 % 52-72 LV Diastolic Volume (4C MOD) 171 ml LV EF (4C MOD) 49 % LV Diastolic Volume (2C MOD) 165 ml LV EF (2C MOD) 66 % LV Diastolic Volume (BP MOD) 168 ml 62-150 LV Diastolic Volume Index (BP MOD) 89 ml/m2 34-74 LV Systolic Volume (BP MOD) 71 ml 21-61 LV Systolic Volume Index (BP MOD) 38 ml/m2 11-31 LV EF (BP MOD) 58 % 52-72 LV Diastolic Length (4C) 9.2 cm LV Systolic Length (4C) 7.7 cm LV Stroke Volume (4C MOD) 83 ml Atria Name Value Normal LA Dimensions LA Dimension (MM) 3.1 cm 3.0-4.1 LA Volume (4C A-L) 39 ml LA Volume (BP A-L) 45 ml RA Dimensions RA Area (4C) 14.3 cm2 <=18.0 EchoPAC Name Value Normal AutoEF LVCO_BiP_Q (Ywoq8MVC) 3.3 l/min LVEF_BiP_Q (Kzim9EQY) 52 % LVSV_BiP_Q (Paae4OXY) 64 ml LVVED_BiP_Q (Fvta5OLQ) 124 ml LVVES_BiP_Q (Zqyj3UAT) 59 ml HR_4Ch_Q (Dnrw7SOO) 50 bpm LVCO_4Ch_Q (Qewn7ASE) 2.7 l/min LVEF_4Ch_Q (Mtmn4WVR) 50 % LVLd_4Ch_Q (Sgri6VZN) 8.9 cm LVLs_4Ch_Q (Qxcv0MQL) 7.7 cm LVSV_4Ch_Q (Tjxb5AZN) 54 ml LVVED_4Ch_Q (Hjqs3REY) 110 ml LVVES_4Ch_Q (Yguv3QLW) 55 ml HR_2Ch_Q (Tdtm6GKU) 49 bpm LVCO_2Ch_Q (Seup5HOK) 3.8 l/min LVEF_2Ch_Q (Lmld2DLT) 55 % LVLd_2Ch_Q (Plns5NJZ) 9.9 cm LVLs_2Ch_Q (Ilrh4FUC) 8.3 cm LVSV_2Ch_Q (Gzxc4ISE) 79 ml LVVED_2Ch_Q (Owzb0ZSQ) 142 ml LVVES_2Ch_Q (Fduv3GWT) 64 ml SHRADDHA AA peak sys SL (AWMA) 18.1 % AAS peak sys SL (AWMA) 19.8 % AI peak sys SL (AWMA) 21.2 % AL peak sys SL (AWMA) 21.2 % AP peak sys SL (AWMA) 18.6 % peak sys SL (AWMA) 24.2 % AVC (AWMA) 443 ms BA peak sys SL (AWMA) 11.2 % BAS peak sys SL (AWMA) 14.2 % BI peak sys SL (AWMA) 19.0 % BL peak sys SL (AWMA) 18.6 % BP peak sys SL (AWMA) 14.3 % BS peak sys SL (AWMA) 7.9 % G peak SL(A2C) (AWMA) 17.6 % G peak SL(A4C) (AWMA) 17.1 % G peak SL(APLAX) (AWMA) 16.6 % G peak SL(Avg) (AWMA) 17.1 % MA peak sys SL (AWMA) 17.9 % MAS peak sys SL (AWMA) 18.1 % OR peak sys SL (AWMA) 20.6 % ML peak sys SL (AWMA) 19.5 % MP peak sys SL (AWMA) 17.5 % MS peak sys SL (AWMA) 17.4 % Report Signatures
[2024-08-03] MEDS: PERFLUTREN LIPID MICROSPHERES 1.5 ML VIAL DILUTED TO 10 ML TOTAL VOLUME IV PUSH ×2 (09:20→09:30)
--- NOTE | 2024-08-03 09:57 | IVDEFINITY ---
Prior to administration of IV Definity the patient was educated on the risks and benefits of the imaging enhancing agent including potential adverse side effects. The patient verbalized understanding. Allergies were verified. No exclusion criteria were identified and at least one of the following inclusion criteria were met: 1) physician request, 2) patient technically difficult to image (per the [place] [employer] Echocardi[employer] guidelines of two or more segments not discernable within the apical view), or 3) questionable left ventricular function. ?
== END 2024-08-03 08:32 | disposition home or self-care (01) ==
LOC: ANHCARD 08:31
PROVIDERS: PCP Internal Medicine; Visit Provider Internal Medicine Cardiovascular Disease
DX: I51.81 Takotsubo syndrome (principal); I51.89 Other ill-defined heart diseases; I72.8 Aneurysm of other specified arteries
CPT/HCPCS: 96375; C8929; Q9957